=== PATIENT | male | born 1990 ===

== ENCOUNTER 2024-04-12 11:41 | Outpatient (REF) | payer OTHER, SELFPAY ==
--- OUTSIDE RECORDS SUMMARY | 2024-04-12 13:35 | XMS_ITS | Data Portability ---
Author Organization [facility] Home Service Address [address] [place] [address] Assessment No assessment recorded. Plan of Treatment Reminders Order Date Submit Date Provider Last Modified By Organization Details Last Modified Time Details Appointments NEW PATIENT 30 2024 11:00A M DR LAY Not available Not available Not available ANNUAL EXAM 2024 02:00P M DR LAY Not available Not available Not available Lab ESR (erythroc yte sedimenta tion rate), blood 2024 025 [email or web address] Not available 04/12/2024 11:51:12 C-reactiv e protein, quantitat tatianna, serum or plasma 2024 025 [email or web address] Not available 04/12/2024 11:51:26 food allergen panel, serum 2024 025 [email or web address] Not available 04/12/2024 11:51:39 ige, total, serum 2024 025 [email or web address] Not available 04/12/2024 11:51:50 CBC w/ auto diff 2024 025 [email or web address] Not available 04/12/2024 11:52:00 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 Surgeries None recorded. Imaging None recorded. Medication Orders None recorded. Patient TargetsNo targets recorded. Patient InstructionsNo instructions recorded. 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 Medical Equipment None Reported. Allergies No known drug allergies Medications Name Sig Start Date Stop Date Status Note LastModified by Organization Details LastModified Time moxifloxacin 0.5 % eye drops INSTILL 1 DROP IN the LEFT EYE 3 TIMES PER DAY 04/12 completed Not Available Not Available Not Available Vitals Date Recorded Body height Body mass index (BMI) Body weight Heart rate Oxygen saturation Oxygen saturation in Arterial blood by Pulse oximetry Systolic blood pressure Diastolic blood pressure Provider Name and Address Organization Details Last Updated DateTime 177.8 cm 30.7 kg/m2 01029.7 7 g 68 /min 98 % 98 % 114 mm[Hg] 66 mm[Hg] Chip Schaefer [facility] 11:05:52 Social History Question Answer Notes LastModified by Organizat ion Details LastModified Time Tobacco Smoking Status Former Smoker Social Past Chip chapman [facility] 04/12/2024 11:04:36 What Was The Date Of Your Most Recent Tobacco Screening? 04/12/2024 [email or web address] Information not available 04/12/2024 Sex: Unknown Functional Status None recorded. Mental Status None recorded. Family History Nothing Reported. Medical History No medical history recorded. Past Encounters Encounter ID Performer Location Encounter Start Date Encounter Closed Date Diagnosis/Indication Diagnosis SNOMED-CT Code Diagnosis ICD10 Code Diagnosis Note [id number] Williams Lay DO [facility] [address] [facility],[place] [address] 04/12/2024 10:57:07 04/12/2024 12:26:42 Depression screening 425675053 Z13.31 neg Dermatogra phic urticaria 1925032 L50.3 will start zyrtec and stop the negro Health Concerns Section Related Observation LastModified by Organization Detai ls LastModified Time None Recorded Concern Status LastModified by Organization Details LastModified Time None Recorded Advance Directives Directive None Recorded Payers Encounter Date Sequence Insurance Name Policy Number Policy Navarro Covered Member ID Navarro Member ID Guarantor Name 04/12/2024 1 [employer] - DOS ON OR AFTER 2024 - [employer] () Macario Norman [id number] Macario Norman
--- OUTSIDE RECORDS SUMMARY | 2024-04-12 13:35 | XMS_ITS | Continuity of Care Document ---
Author Organization [place] [facility], [facility] Address [address] [place] [address] [place] [address] Assessment No assessment recorded. Plan of Treatment Reminders Order Date Submit Date Provider Last Modified By Organization Details Last Modified Time Details Appointments NEW PATIENT 30 2024 11:00A M DR LAY Not available Not available Not available ANNUAL EXAM 2024 02:00P M DR LAY Not available Not available Not available Lab ESR (erythroc yte sedimenta tion rate), blood 2024 025 [email or web address] Not available 04/12/2024 11:51:12 C-reactiv e protein, quantitat tatianna, serum or plasma 2024 025 Not available 04/12/2024 11:51:26 food allergen panel, serum 2024 025 [email or web address] Not available 04/12/2024 11:51:39 ige, total, serum 2024 025 [email or web address] Not available 04/12/2024 11:51:50 CBC w/ auto diff 2024 025 [email or web address] Not available 04/12/2024 11:52:00 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 Surgeries None recorded. Imaging None recorded. Medication Orders None recorded. Patient TargetsNo targets recorded. Patient InstructionsNo instructions recorded. 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 [...] Last Updated DateTime 177.8 cm 30.7 kg/m2 82012.7 7 g 68 /min 98 % 98 % 114 mm[Hg] 66 mm[Hg] Chip Schaefer [facility] 11:05:52 Social History Question Answer Notes LastModified by Organizat ion Details LastModified Time Tobacco Smoking Status Former Smoker Social Past Chip chapman [facility] 04/12/2024 11:04:36 What Was The Date Of Your Most Recent Tobacco Screening? 04/12/2024 [email or web address] Information not available 04/12/2024 Sex: Unknown Functional Status None recorded. Mental Status None recorded. Family History Nothing Reported. Medical History No medical history recorded. Past Encounters Encounter ID Performer Location Encounter Start Date Encounter Closed Date Diagnosis/Indication Diagnosis SNOMED-CT Code Diagnosis ICD10 Code Diagnosis Note [id number] Williams Lay DO [facility] [address] [facility],[place] [address] 04/12/2024 10:57:07 04/12/2024 12:26:42 Depression screening 733033577 Z13.31 neg Dermatogra phic urticaria 9436543 L50.3 will start zyrtec and stop the negro Health Concerns Section Related Observation LastModified by Organization Detai ls LastModified Time None Recorded Concern Status LastModified by Organization Details LastModified Time None Recorded Payers Encounter Date Sequence Insurance Name Policy Number Policy Navarro Covered Member ID Navarro Member ID Guarantor Name 04/12/2024 1 [employer] - DOS ON OR AFTER 2024 - [employer] () Macario Norman [id number] Macario Norman
--- OUTSIDE RECORDS SUMMARY | 2024-04-12 13:36 | XMS_ITS | Continuity of Care Document ---
Author Name [facility] Organization [facility] Care Team Providers Care Laundry Supervisor Name Role Phone [facility] Unavailable Unavailable Problems Combined list of problems from Department of Defense and Veterans Affairs facilities. It does not include entries that were removed or entered in error. Problem Status Onset Date Problem Type Date of Resolution Comments Source Injury of conjunctiva and corneal abrasion without foreign body, right eye Inactive 09/11/19 19 Condition [facility] Family history of malignant melanoma Active Condition May 12, 2023 Entered By: Marco Antonio CEDILLO Comment: father with melanoma age 59 [facility] [place] [facility] Family history of prostate cancer Active Condition May 12, 2023 Entered By: Marco Antonio CEDILLO Comment: father dx'd with prostate cancer age 55/ Dad now 75 alive and well- 2023 [facility] [place] [facility] Irritable bowel syndrome Active Condition May 12, 2023 Entered By: Marco Antonio CEDILLO Comment: mild sx/ vet used loperamide in past and experienced constipation/ trial of avoid FODMAP foods [facility] [place] [facility] Pain of right shoulder joint Active Condition May 12, 2023 Entered By: Marco Antonio CEDILLO Comment: consider med rehab consult [facility] [place] [facility] Diagnosis: ICD-10-CM Z71.89 Other specified counseling Active Diagnosis [facility] [place] [facility] Diagnosis: ICD-10-CM M25.511 Pain in right shoulder Active Diagnosis [facility] [place] [facility] Allergies, Adverse Reactions, Alerts Combined list of allergies from Department of Defense and Veterans Affairs facilities. It does not include entries that were removed or entered in error. Substance Category Reaction Severity Reaction type Status Date Reported Comments Source No Known Allergies Drug allergy (disorder) active 03/13/2023 [facility], [place] Immunizations Combined list of available immunizations from the Department of Defense and Veterans Affairs facilities. Immunization Series Date Given Administered By Site Reaction Lot Number CVX Code Drug Senior Business Manager Status Comments Source MENINGOCOCCAL MCV4P 1 2022 114 complet ed meningoco ccal polysacch aride (groups A, C, Y and W-135) diphtheri a toxoid conjugate vaccine (MCV4P) Lot#: [id number] [facility] [employer] typhoid vaccine, parenteral 2022 ROSARIOFMARTI BRUCE Shoul kaylee, left (delt oid) [id number] sanofi pasteur complet ed typhoid vaccine, parentera l 04/02/22 Given [id number]-A [facility] anthrax vaccine 2022 ROSARIOFMARTI BRUCE Shoul kaylee, left (delt oid) [id number] [facility]. complet ed anthrax vaccine 04/02/22 Given 0110A-A [facility] ANTHRAX, PRE-EXPOSURE PROPHYLAXIS, POST-EXPOSURE PROPHYLAXIS 2022 LEFT DELTO ID 24 complet ed Lot#: [id number] [facility] TYPHOID, PARENTERAL 2022 LEFT DELTO ID 41 complet ed typhoid vaccine, parentera l Lot#: [id number] Mfr: SANOFI PASTEUR [facility] [employer] SARS-CoV-2 (COVID-19) [id number] vacc 2020 [id number] PFIZER complet ed SARS-CoV- 2 (COVID-19 ) [id number] 73 vacc 12/13/20 Given Ambulat ory Pharmac y COVID-19 (PFIZER), MRNA, LNP-S, PF, 30 MCG/0.3 ML DOSE 2020 208 complet ed SARS-CoV- 2 (COVID-19 ) NVX-CoV23 73 vacc Lot#: [id number] Mfr: PFIZER, INC [facility] [employer] COVID Vaccine Pfizer 2020 [id number] PFIZER complet ed COVID Vaccine Pfizer 11/22/20 Given Ambulat ory Pharmac y COVID-19 (PFIZER), MRNA, LNP-S, PF, 30 MCG/0.3 ML DOSE 1 2020 208 complet ed Lot#: [id number] Mfr: PFIZER, INC [facility] [place] [facility] influenza, injectable, quadrivalent 2018 [id number] 158 Seqirus complet ed influenza , injectabl e, quadrival ent 12/27/18 Given Ambulat ory Pharmac y influenza, injectable, quadrivalent, contains preservative 1 2018 [id number] 158 Se[employer] (SEQ) complet ed influenza , injectabl e, quadrival ent, contains preservat tatianna DoD typhoid Vi capsular polysaccharid e vac 2018 [id number] sanofi pasteur complet ed typhoid Vi capsular polysacch aride vac 04/01/18 Given Ambulat ory Pharmac y anthrax vaccine 2018 [id number] [employer]gent [employer] complet ed anthrax vaccine 04/01/18 Given Ambulat ory Pharmac y pneumococcal polysaccharid e, 23 valent 2018 [id number] 33 Merck & Company Inc complet ed pneumococ jese polysacch aride, 23 valent 04/01/18 Given Ambulat ory Pharmac y anthrax vaccine 1 2018 [id number] [employer] [place] ([facility]) complet ed anthrax vaccine DoD pneumococcal polysaccharid e vaccine, 23 valent 1 2018 [id number] 33 Merck (MSD) complet ed pneumococ jese polysacch aride vaccine, 23 valent DoD typhoid Vi capsular polysaccharid e vaccine 1 2018 [id number] Sanofi Pasteur (PMC) complet ed typhoid Vi capsular polysacch aride vaccine DoD ANTHRAX, PRE-EXPOSURE PROPHYLAXIS, POST-EXPOSURE PROPHYLAXIS 2018 24 complet ed Lot#: [id number] Mfr: EMERGENT BIOSOLUTI ONS [facility] PNEUMOCOCCAL POLYSACCHARID E [id number] 2018 33 complet ed pneumococ jese polysacch aride, 23 valent Lot#: [id number] [facility] TYPHOID, VICPS 1 2018 101 complet ed typhoid Vi capsular polysacch aride vaccine Lot#: [id number] Mfr: SANOFI PASTEUR [facility] influenza, seasonal, injectable-pf 2017 [id number] 140 Seqirus complet ed influenza , seasonal, injectabl e-pf 12/21/17 Given Ambulat ory Pharmac y Influenza, seasonal, injectable, preservative free 1 2017 [id number] 140 Seqirus (SEQ) comple t ed Influenza , seasonal, injectabl e, preservat tatianna free DoD hepatitis A adult vaccine 2016 [id number] 52 GlaxoSmithKli ne complet ed hepatitis A adult vaccine 12/22/16 Given Ambulat ory Pharmac y hepatitis A vaccine, adult dosage 2 2016 [id number] 52 SmithKline (SKB) complet ed hepatitis A vaccine, adult dosage DoD hepatitis A adult vaccine 2016 [id number] 52 GlaxoSmithKli ne complet ed hepatitis A adult vaccine 12/20/16 Given Ambulat ory Pharmac y hepatitis A vaccine, adult dosage 2 2016 [id number] 52 SmithKline (SKB) complet ed hepatitis A vaccine, adult dosage DoD HEP A, ADULT 2 2016 52 complet ed hepatitis A vaccine, adult dosage Lot#: [id number] [facility] influenza, seasonal, injectable-pf 2016 [id number] 140 Unknown complet ed influenza , seasonal, injectabl e-pf 11/30/16 Given Ambulat ory Pharmac y Influenza, seasonal, injectable, preservative free 1 2016 [id number] 140 Unknown (UNK) comple t ed Influenza , seasonal, injectabl e, preservat tatianna free DoD influenza, seasonal, injectable 2015 [id number] 1A 141 CSL Behring complet ed influenza , seasonal, injectabl e 10/27/15 Given Ambulat ory Pharmac y Influenza, seasonal, injectable 1 2015 [id number] 1A 141 CSL [employer] (CSL) complet ed Influenza , seasonal, injectabl e DoD measles, mumps and rubella virus vaccine 1 2015 UNK 03 Unknown (UNK) Not Given measles, mumps and rubella virus vaccine DoD varicella virus vaccine 1 2015 UNK 21 Unknown (UNK) Not Given varicella virus vaccine DoD hepatitis B vaccine, adult dosage 1 2015 UNK 43 Unknown (UNK) Not Given hepatitis B vaccine, adult dosage DoD hepatitis A adult vaccine 2015 [id number] 52 GlaxoSmithKli ne complet ed hepatitis A adult vaccine 08/14/15 Given Ambulat ory Pharmac y adenovirus vaccine, live 2015 [id number] 4 143 Teva Pharmaceutica ls complet ed adenoviru s vaccine, live 08/14/15 Given Ambulat ory Pharmac y hepatitis A vaccine, adult dosage 1 2015 [id number] 52 [place] (SKB) complet ed hepatitis A vaccine, adult dosage DoD Adenovirus, type 4 and type 7, live, oral 1 2015 [id number] 4 143 Pantoja [facility] (BRR) complet ed Adenoviru s, type 4 and type 7, live, oral DoD ADENOVIRUS TYPES 4 AND 7 1 2015 143 complet ed Adenoviru s, type 4 and type 7, live, oral Lot#: [id number] Mfr: PANTOJA LABORATOR IES [facility] HEP A, ADULT 1 2015 52 complet ed hepatitis A vaccine, adult dosage Lot#: [id number] [facility] tetanus, diphtheria, acellular pertu is 2015 [id number] 115 sanofi pasteur complet ed tetanus, diphtheri a, acellular pertussis 08/10/15 Given Ambulat ory Pharmac y poliovirus vaccine, inactivated 2015 [id number] 10 sanofi pasteur complet ed polioviru s vaccine, inactivat ed 08/10/15 Given Ambulat ory Pharmac y meningococcal A,C,Y,W-135 (MCV4P) 2015 [id number] 114 GlaxoSmithKli ne complet ed meningoco ccal A,C,Y,W-1 35 (MCV4P) 08/10/15 Given Ambulat ory Pharmac y poliovirus vaccine, inactivated 1 2015 [id number] 10 Sanofi Pasteur (PMC) complet ed polioviru s vaccine, inactivat ed DoD meningococcal polysaccharid e (groups A, C, Y and W-135) diphtheria toxoid conjugate vaccine (MCV4P) 1 2015 [id number] 114 SmithKline (SKB) complet ed meningoco ccal polysacch aride (groups A, C, Y and W-135) diphtheri a toxoid conjugate vaccine (MCV4P) DoD tetanus toxoid, reduced diphtheria toxoid, and acellular pertu is vaccine, adsorbed 1 2015 [id number] 115 Sanofi Pasteur (PMC) complet ed tetanus toxoid, reduced diphtheri a toxoid, and acellular pertussis vaccine, adsorbed DoD POLIO, UNSPECIFIED FORMULATION 2015 89 complet ed polioviru s vaccine, inactivat ed Lot#: [id number] Mfr: SANOFI PASTEUR [facility] TDAP 2015 115 complet ed tetanus, diphtheri a, acellular pertussis Lot#: [id number] Mfr: SANOFI PASTEUR [facility] influenza, seasonal, injectable-pf 2014 [id number] 140 Unknown complet ed influenza , seasonal, injectabl e-pf 01/29/15 Given Ambulat ory Pharmac y Influenza, seasonal, injectable, preservative free 1 2014 [id number] 140 Other (OTH) complet ed Influenza , seasonal, injectabl e, preservat tatianna free DoD Results Combined list of recent chemistry, hematology and other laboratory results from Department of Defense and Veterans Affairs, ranging from 15 months to all on record, depending upon the facility. Order Name Results Value Reference Range Date Interpretation Specimen Comments Source BASIC METABOLI C PANEL (non-fas ting) UREA NITROGEN [MASS/VOLU ME] IN SERUM OR PLASMA 20 mg/dL 7 - 25 05/11 Specimen Type: SERUM No comment entered. Ordering Provider: COSTA GALEANO Report Released Date/Time: May 12, 2023 09:36 AM Reporting Lab: [facility] [address] [address] Performing Lab: [facility] [address] [address] [facility] BASIC METABOLI C PANEL (non-fas ting) GLUCOSE [MASS/VOLU ME] IN SERUM OR PLASMA 98 mg/dL 65 - 100 05/11 Specimen Type: SERUM No comment entered. Ordering Provider: COSTA GALEANO Report Released Date/Time: May 12, 2023 09:36 AM Reporting Lab: [facility] [place] [facility] [address] [address] Performing Lab: [facility] [place] [facility] [address] [address] [facility] [place] [facility] BASIC METABOLI C PANEL (non-fas ting) SODIUM [MOLES/VOL UME] IN SERUM OR PLASMA 140 mmol/L 135 - 145 05/11 Specimen Type: SERUM No comment entered. Ordering Provider: COSTA GALEANO Report Released Date/Time: May 12, 2023 09:36 AM Reporting Lab: [facility] [place] [facility] [address] [address] Performing Lab: [facility] [place] [address] [address] [facility] BASIC METABOLI C PANEL (non-fas ting) POTASSIUM [MOLES/VOL UME] IN SERUM OR PLASMA 4.4 mmol/L 3.5 - 5.0 05/11 Specimen Type: SERUM No comment entered. Ordering Provider: COSTA GALEANO Report Released Date/Time: May 12, 2023 09:36 AM Reporting Lab: [facility] [place] [address] [address] Performing Lab: [facility] [place] [address] [address] [facility] [place] [facility] BASIC METABOLI C PANEL (non-fas ting) CHLORIDE [MOLES/VOL UME] IN SERUM OR PLASMA 105 mmol/L 100 - 110 05/11 Specimen Type: SERUM No comment entered. Ordering Provider: COSTA GALEANO Report Released Date/Time: May 12, 2023 09:36 AM Reporting Lab: [facility] [place] [facility] [address] [address] Performing Lab: [facility] [place] [address] [address] [facility] [place] [facility] BASIC METABOLI C PANEL (non-fas ting) CARBON DIOXIDE, TOTAL [MOLES/VOL UME] IN SERUM OR PLASMA 25 meq/L 20 - 30 05/11 Specimen Type: SERUM No comment entered. Ordering Provider: COSTA GALEANO Report Released Date/Time: May 12, 2023 09:36 AM Reporting Lab: [address] [address] Performing Lab: [facility] [address] [facility] BASIC METABOLI C PANEL (non-fas ting) CREATININE [MASS/VOLU ME] IN SERUM OR PLASMA 0.94 mg/dL 0.50 - 1.40 05/11 Specimen Type: SERUM No comment entered. Ordering Provider: COSTA GALEANO Report Released Date/Time: May 12, 2023 09:36 AM Reporting Lab: [facility] [address] Performing Lab: [facility] [address] [facility] BASIC METABOLI C PANEL (non-fas ting) GLOMERULAR FILTRATION RATE/1.73 SQ M.PREDICTE D [VOLUME RATE/AREA] IN SERUM, PLASMA OR BLOOD BY CREATININE -BASED FORMULA (CKD-EPI 2020) >90mL/mi n 60 05/11 Specimen Type: SERUM No comment entered. Ordering Provider: COSTA GALEANO Report Released Date/Time: May 12, 2023 09:36 AM Reporting Lab: [facility] [address] Performing Lab: [facility] [address] [facility] CALCIUM CALCIUM [MASS/VOLU ME] IN SERUM OR PLASMA 9.2 mg/dL 8.5 - 10.2 05/11 Specimen Type: SERUM No comment entered. Ordering Provider: COSTA GALEANO Report Released Date/Time: May 12, 2023 09:36 AM Reporting Lab: [facility] [place] [facility] [address] [address] Performing Lab: [facility] [place] [facility] [address] [address] [facility] [place] [facility] CBC AND DIFF (AUTO) LEUKOCYTES [#/VOLUME] IN BLOOD BY AUTOMATED COUNT 7.67 10*3/uL 4.50 - 11.00 05/11 Specimen Type: BLOOD No comment entered. Ordering Provider: COSTA GALEANO Report Released Date/Time: May 12, 2023 09:36 AM Reporting Lab: [facility] [place] [facility] [address] [address] Performing Lab: [facility] [place] [facility] [address] [address] [facility] [place] [facility] CBC AND DIFF (AUTO) ERYTHROCYT ES [#/VOLUME] IN BLOOD BY AUTOMATED COUNT 4.48 10*6/uL 4.23 - 5.66 05/11 Specimen Type: BLOOD No comment entered. Ordering Provider: COSTA GALEANO Report Released Date/Time: May 12, 2023 09:36 AM Reporting Lab: [facility] [place] [facility] [address] [address] Performing Lab: [facility] [place] [facility] [address] [address] [facility] [place] [facility] CBC AND DIFF (AUTO) HEMOGLOBIN [MASS/VOLU ME] IN BLOOD 14.1 g/dL 12.8 - 17 05/11 Specimen Type: BLOOD No comment entered. Ordering Provider: COSTA GALEANO Report Released Date/Time: May 12, 2023 09:36 AM Reporting Lab: [facility] [place] [facility] [address] [address] Performing Lab: [facility] [place] [facility] [address] [place] [address] [facility] [place] [facility] CBC AND DIFF (AUTO) HEMATOCRIT [VOLUME FRACTION] OF BLOOD BY AUTOMATED COUNT 38.8 39.2 - 50.4 05/11 L Specimen Type: BLOOD No comment entered. Ordering Provider: COSTA GALEANO Report Released Date/Time: May 12, 2023 09:36 AM Reporting Lab: [facility] [place] [address] [address] Performing Lab: [facility] CENTERTRN [facility]ITAL[facility]ETS [facility] [address] [address] [facility] CBC AND DIFF (AUTO) MCV [ENTITIC VOLUME] BY AUTOMATED COUNT 86.6 fL 82 - 99 05/11 Specimen Type: BLOOD No comment entered. Ordering Provider: COSTA GALEANO Report Released Date/Time: May 12, 2023 09:36 AM Reporting Lab: [facility]ITALUSETS [address] [address] Performing Lab: [facility]TRN [place] [address] [address] [facility]ITALN [facility] CBC AND DIFF (AUTO) MCHC [MASS/VOLU ME] BY AUTOMATED COUNT 36.3 g/dL 30.8 - 35.1 05/11 H Specimen Type: BLOOD No comment entered. Ordering Provider: COSTA GALEANO Report Released Date/Time: May 12, 2023 09:36 AM Reporting Lab: [facility]TRN [place] [facility] [address] [address] Performing Lab: [facility] [place] [address] [address] [facility]N [facility]ITALUSE [facility] CBC AND DIFF (AUTO) PLATELETS [#/VOLUME] IN BLOOD BY AUTOMATED COUNT 273 10*3/uL 140 - 360 05/11 Specimen Type: BLOOD No comment entered. Ordering Provider: COSTA GALEANO Report Released Date/Time: May 12, 2023 09:36 AM Reporting Lab: [facility]ENTERTRN [place] [address] [address] Performing Lab: [place] [facility] [place] [facility] [address] [address] [facility] [place] [facility] CBC AND DIFF (AUTO) ERYTHROCYT E DISTRIBUTI ON WIDTH [RATIO] BY AUTOMATED COUNT 12.2 12.0 - 16.0 05/11 Specimen Type: BLOOD No comment entered. Ordering Provider: COSTA GALEANO Report Released Date/Time: May 12, 2023 09:36 AM Reporting Lab: [facility] [place] [facility] [address] [address] Performing Lab: [place] [facility] [facility] [address] [address] [facility] [place] [facility] CBC AND DIFF (AUTO) MONOCYTES [#/VOLUME] IN BLOOD BY AUTOMATED COUNT 0.70 10*3/uL 0.30 - 1.10 05/11 Specimen Type: BLOOD No comment entered. Ordering Provider: COSTA GALEANO Report Released Date/Time: May 12, 2023 09:36 AM Reporting Lab: [facility] [place] [facility] [address] [address] Performing Lab: [place] [facility] [place] [facility] [address] [address] [facility] [place] [facility] CBC AND DIFF (AUTO) MCH [ENTITIC MASS] BY AUTOMATED COUNT 31.5 pg 26.2 - 32.6 05/11 Specimen Type: BLOOD No comment entered. Ordering Provider: COSTA GALEANO Report Released Date/Time: May 12, 2023 09:36 AM Reporting Lab: [facility] [place] [facility] [address] [address] Performing Lab: [place] [facility] [place] [facility] [address] [address] [facility] [place] [facility] CBC AND DIFF (AUTO) NEUTROPHIL S/100 LEUKOCYTES IN BLOOD BY AUTOMATED COUNT 59.5 43.7 - 75.8 05/11 Specimen Type: BLOOD No comment entered. Ordering Provider: COSTA GALEANO Report Released Date/Time: May 12, 2023 09:36 AM Reporting Lab: [facility] [place] [facility] [address] [address] Performing Lab: [facility] [place] [facility] [address] [address] [facility] [place] [facility] CBC AND DIFF (AUTO) LYMPHOCYTE S/100 LEUKOCYTES IN BLOOD BY AUTOMATED COUNT 26.9 14.0 - 42.3 05/11 Specimen Type: BLOOD No comment entered. Ordering Provider: COSTA GALEANO Report Released Date/Time: May 12, 2023 09:36 AM Reporting Lab: [facility] [place] [facility] [address] [address] Performing Lab: [facility] [place] [facility] [address] [address] [place] [facility] [place] [facility] CBC AND DIFF (AUTO) MONOCYTES/ 100 LEUKOCYTES IN BLOOD BY AUTOMATED COUNT 9.1 5.1 - 13.7 05/11 Specimen Type: BLOOD No comment entered. Ordering Provider: COSTA GALEANO Report Released Date/Time: May 12, 2023 09:36 AM Reporting Lab: [facility] [place] [facility] [address] [address] Performing Lab: [facility] [place] [facility] [address] [address] [facility] [place] [facility] CBC AND DIFF (AUTO) EOSINOPHIL S/100 LEUKOCYTES IN BLOOD BY AUTOMATED COUNT 3.7 0.4 - 6.8 05/11 Specimen Type: BLOOD No comment entered. Ordering Provider: COSTA GALEANO Report Released Date/Time: May 12, 2023 09:36 AM Reporting Lab: [facility] [place] [facility] [address] [address] Performing Lab: [facility] [place] [facility] [address] [address] [facility] [place] [facility] CBC AND DIFF (AUTO) BASOPHILS/ 100 LEUKOCYTES IN BLOOD BY AUTOMATED COUNT 0.4 0.1 - 2.0 05/11 Specimen Type: BLOOD No comment entered. Ordering Provider: COSTA GALEANO Report Released Date/Time: May 12, 2023 09:36 AM Reporting Lab: [place] [facility] [place] [facility] [address] [address] Performing Lab: [facility] [address] [address] [place] [facility] [place] [facility] CBC AND DIFF (AUTO) NEUTROPHIL S [#/VOLUME] IN BLOOD BY AUTOMATED COUNT 4.57 10*3/uL 2.20 - 7.60 05/11 Specimen Type: BLOOD No comment entered. Ordering Provider: COSTA GALEANO Report Released Date/Time: May 12, 2023 09:36 AM Reporting Lab: [facility] [address] [id number] Performing Lab: [facility] [place] [address] [id number] [facility] [place] [facility] CBC AND DIFF (AUTO) LYMPHOCYTE S [#/VOLUME] IN BLOOD BY AUTOMATED COUNT 2.06 10*3/uL 1.00 - 3.20 05/11 Specimen Type: BLOOD No comment entered. Ordering Provider: COSTA GALEANO Report Released Date/Time: May 12, 2023 09:36 AM Reporting Lab: [facility] [place] [address] [id number] Performing Lab: [facility] [place] [address] [address] [facility] [place] [facility] CBC AND DIFF (AUTO) EOSINOPHIL S [#/VOLUME] IN BLOOD BY AUTOMATED COUNT 0.28 10*3/uL 0.03 - 0.44 05/11 Specimen Type: BLOOD No comment entered. Ordering Provider: COSTA GALEANO Report Released Date/Time: May 12, 2023 09:36 AM Reporting Lab: [facility] [place] [address] [address] Performing Lab: [facility] [place] [address] [address] [facility] [facility] CBC AND DIFF (AUTO) BASOPHILS [#/VOLUME] IN BLOOD BY AUTOMATED COUNT 0.03 10*3/uL 0.01 - 0.13 05/11 Specimen Type: BLOOD No comment entered. Ordering Provider: COSTA GALEANO Report Released Date/Time: May 12, 2023 09:36 AM Reporting Lab: [facility] [place] [facility] [address] [address] Performing Lab: [facility] [address] [address] [facility]ITAL[facility] CBC AND DIFF (AUTO) IMMATURE GRANULOCYT ES/100 LEUKOCYTES IN BLOOD BY AUTOMATED COUNT 0.4 0.0 - 0.7 05/11 Specimen Type: BLOOD No comment entered. Ordering Provider: COSTA GALEANO Report Released Date/Time: May 12, 2023 09:36 AM Reporting Lab: [facility]ENTERTRN [facility]ITAL[facility] [address] [address] Performing Lab: [facility]ENTERTRN [facility]ITAL[facility] [address] [address] [facility]ITALN [facility]ITALUSE [facility] CBC AND DIFF (AUTO) IMMATURE GRANULOCYT ES [#/VOLUME] IN BLOOD 0.03 10*3/uL 0.00 - 0.06 05/11 Specimen Type: BLOOD No comment entered. Ordering Provider: COSTA GALEANO Report Released Date/Time: May 12, 2023 09:36 AM Reporting Lab: [facility]ENTERTRN [facility]ITAL[facility] [address] [address] Performing Lab: [facility]REVER[facility]ENTERTRN [facility]ITALUSE[address] [address] [facility]ITALN [facility]ITALUSE [facility] HEMOGLOB IN A1C PANEL HEMOGLOBIN A1C/HEMOGL OBIN.TOTAL IN BLOOD BY HPLC 4.8 4.0 - 5.6 05/11 Specimen Type: BLOOD Comment: Values obtained from A1C measurement s can vary. For atypical A1C assays, a reported value of 7.0 could actually be between 6.72 and 7.28 if measured by a reference method. A reported value of 9.0 could actually be between 8.73 and 9.27. Ref: http://www. ngsp.org/[place] Pdata.asp Ordering Provider: COSTA GALEANO Report Released Date/Time: May 12, 2023 09:36 AM Reporting Lab: [facility] [place] [address] [address] Performing Lab: [facility]IONREVERGRE[facility] CENTERTRN [facility]ITALUSE[address] [address] [facility]ITALN [facility]PITALUSE [facility] LIPID PANEL, NON FASTING CHOLESTERO L [MASS/VOLU ME] IN SERUM OR PLASMA 197 mg/dL 05/11 Specimen Type: SERUM No comment entered. Ordering Provider: COSTA GALEANO Report Released Date/Time: May 12, 2023 09:36 AM Reporting Lab: [facility] [place] [facility] [address] [address] Performing Lab: [facility] W[facility]N [facility]ITALUSETS [address] [address] [facility]ITALN [facility]ITALUSE [facility] LIPID PANEL, NON FASTING TRIGLYCERI DE [MASS/VOLU ME] IN SERUM OR PLASMA 132 mg/dL 0 - 150 05/11 Specimen Type: SERUM No comment entered. Ordering Provider: COSTA GALEANO Report Released Date/Time: May 12, 2023 09:36 AM Reporting Lab: [facility] [place] [facility] [address] [address] Performing Lab: [facility]N [facility]ITAL[facility]ETS [address] [address] [facility]ITALN [facility]ITAL[facility] LIPID PANEL, NON FASTING CHOLESTERO L IN LDL [MASS/VOLU ME] IN SERUM OR PLASMA BY CALCULATIO N 113 mg/dL 0 - 129 05/11 Specimen Type: SERUM No comment entered. Ordering Provider: COSTA GALEANO Report Released Date/Time: May 12, 2023 09:36 AM Reporting Lab: [facility] [place] [facility] [address] [address] Performing Lab: [facility] [place] [facility] [address] [address] [facility] [place] [facility] LIPID PANEL, NON FASTING CHOLESTERO L.TOTAL/CH OLESTEROL IN HDL [MASS RATIO] IN SERUM OR PLASMA 3.4 05/11 Specimen Type: SERUM No comment entered. Ordering Provider: COSTA GALEANO Report Released Date/Time: May 12, 2023 09:36 AM Reporting Lab: [facility] [place] [facility] [address] [address] Performing Lab: [facility] [place] [facility] [address] [address] [facility] [place] [facility] LIPID PANEL, NON FASTING CHOLESTERO L IN HDL [MASS/VOLU ME] IN SERUM OR PLASMA 58 mg/dL 40 - 60 05/11 Specimen Type: SERUM No comment entered. Ordering Provider: COSTA GALEANO Report Released Date/Time: May 12, 2023 09:36 AM Reporting Lab: [facility] [place] [facility] [address] [address] Performing Lab: [facility] [place] [facility] [address] [address] [facility] [place] [facility] LIVER FUNCTION PROTEIN [MASS/VOLU ME] IN SERUM OR PLASMA 7.0 g/dL 6.0 - 8.3 05/11 Specimen Type: SERUM No comment entered. Ordering Provider: COSTA GALEANO Report Released Date/Time: May 12, 2023 09:36 AM Reporting Lab: [facility] [place] [facility] [address] [address] Performing Lab: [facility] [place] [address] [address] [facility] [place] [facility] LIVER FUNCTION ALBUMIN [MASS/VOLU ME] IN SERUM OR PLASMA 4.4 g/dL 3.5 - 5.0 05/11 Specimen Type: SERUM No comment entered. Ordering Provider: COSTA GALEANO Report Released Date/Time: May 12, 2023 09:36 AM Reporting Lab: [facility] [place] [facility] [address] [address] Performing Lab: [facility] [place] [facility] [address] [address] [facility] [place] [facility] LIVER FUNCTION ALKALINE PHOSPHATAS E [ENZYMATIC ACTIVITY/V OLUME] IN SERUM OR PLASMA 52 U/L 40 - 150 05/11 Specimen Type: SERUM No comment entered. Ordering Provider: COSTA GALEANO Report Released Date/Time: May 12, 2023 09:36 AM Reporting Lab: [facility] [place] [address] [address] Performing Lab: [facility] [address] [address] [facility] LIVER FUNCTION ASPARTATE AMINOTRANS FERASE [ENZYMATIC ACTIVITY/V OLUME] IN SERUM OR PLASMA 22 U/L 5 - 34 05/11 Specimen Type: SERUM No comment entered. Ordering Provider: COSTA GALEANO Report Released Date/Time: May 12, 2023 09:36 AM Reporting Lab: [facility] [place] [address] [address] Performing Lab: [facility] [place] [address] [address] [facility] LIVER FUNCTION ALANINE AMINOTRANS FERASE [ENZYMATIC ACTIVITY/V OLUME] IN SERUM OR PLASMA 25 U/L 05/11 Specimen Type: SERUM No comment entered. Ordering Provider: COSTA GALEANO Report Released Date/Time: May 12, 2023 09:36 AM Reporting Lab: [facility] [place] [address] [address] Performing Lab: [facility] [place] [address] [address] [facility] LIVER FUNCTION BILIRUBIN. TOTAL [MASS/VOLU ME] IN SERUM OR PLASMA 0.6 mg/dL 0.2 - 1.2 05/11 Specimen Type: SERUM No comment entered. Ordering Provider: COSTA GALEANO Report Released Date/Time: May 12, 2023 09:36 AM Reporting Lab: [facility] [place] [facility] [address] [address] Performing Lab: [facility] [place] [facility] [address] [address] [facility] [place] [facility] TSH THYROTROPI N [UNITS/VOL UME] IN SERUM OR PLASMA 0.84 u[IU]/mL 0.35 - 5.00 05/11 Specimen Type: SERUM No comment entered. Ordering Provider: COSTA GALEANO Report Released Date/Time: May 12, 2023 09:36 AM Reporting Lab: [facility] [place] [facility] [address] [address] Performing Lab: [facility] [address] [address] [facility] [place] [facility] Infectio us Disease HIV-1/2 AG/AB 4G CDD LC NEGATIVE 03/11 Result Comment: Performed At: 1 [facility] [address] [place] [address] SERGIO ZACHARY PHD Ph:[phone] [address] [place] [address] [facility] Infectio us Disease Source of Test.LC PostDepS torage (03/11/23 10:37 AM) 03/11 N [facility] Infectio us Disease Source of Test.LC Pre Deploy (04/02/22 9:28 AM) 04/02 N [facility] Infectio us Disease HIV-1/2 AG/AB 4G CDD LC NEGATIVE 04/02 Result Comment: Performed At: 1 [facility] [address] [place], [place] [id number] SERGIO ZACHARY PHD Ph:[phone] [address] [place] [address] [facility] Hematolo gy Sickle Cell Screen Negative 1 (04/02/22 9:28 AM) 04/02 N Interpretiv e Data: Expected Normal Range is Negative. This test was developed and its performance characteris tics evaluated by [facility] Reference Chemistry Laboratory. ? It has not been cleared or approved by the U.S. Food Drug Administrat ion (FDA).&#160 ; FDA does not require this test to go through premarket FDA review.? The test is used for clinical purposes and should not be regarded as investigati onal or for research. This laboratory is certified under the Clinical Laboratory Improvement Amendments of 1988 ( CLIA ) as qualified to perform high complexity clinical laboratory testing. [address] [place] [address] Vital Signs Combined list of inpatient and outpatient Vital Signs from Department of Defense and Veterans Affairs, ranging from 12 months to all on record, depending upon the facility. Vital Sign Value Date Comments Source SYSTOLIC BLOOD PRESSURE 117 05/12/19 24 09:08:53 [facility] [place] [facility] DIASTOLIC BLOOD PRESSURE 70 024 09:08:53 [facility] [place] [facility] PULSE OXIMETRY 100 05/12/2023 09:08:53 [facility] [place] [facility] WEIGHT 212 05/12/2023 09:08:53 [facility] [place] [facility] BMI 30 kg/m2 05/12/2023 09:08:53 [facility] [place] [facility] HEIGHT 70 05/12/2023 09:08:53 [facility] [place] [facility] PULSE 71 05/12/2023 09:08:53 [facility] [place] [facility] RESPIRATION 18 05/12/2023 09:08:53 [facility] [place] [facility] Peripheral Pulse Rate 54 bpm 03/11/2023 16:31:[address] [place] [address] [facility] Systolic Blood Pressure 114 mm[Hg] 03/11/19 24 16:31:[address] [place] [address] [facility] Diastolic Blood Pressure 83 mm[Hg] 024 16:31:00 [address] Peripheral Pulse Rate 66 bpm 04/02/2022 15:20:00 [facility] Systolic Blood Pressure 124 mm[Hg] 04/02/19 23 15:20:00 [facility] Diastolic Blood Pressure 89 mm[Hg] 023 15:20:00 [facility] Encounters Combined list of: 1) Encounters from Department of Veterans Affairs facilities going backup to the last 18 months, not all VA inpatient encounters are included; 2) Encounters from the Department of Defense facilities going backup to 280 months. Location Location Details Encounter Type Encounter Number Reason For Visit Attending Provider ADM Date DC Date Status Disposition Source [facility] [place] OUTPATIENT [id number] Notes Entered by: EMIL CADE 14 Aug 2015 0817 ------- ------- ------- ------- -- IMM TABATHA CARRASCO 08/13 Released w/o Limitations [facility] ) [facility] Optometry ) OUTPATIENT [id number] ASHUTOSH FERRO 08/13 Released w/o Limitations [facility] Optomet ry) [facility] [place] OUTPATIENT [id number] Notes Entered by: Magdalena TATE 14 Aug 2015 1413 ------- ------- ------- ------- -- Hearing Test ISHAAN TATE 08/13 Released w/o Limitations [facility] [place] [place]) OUTPATIENT [id number] Notes Entered by: MELI RUIZ 04 Sep 2015 0930 ------- ------- ------- ------- -- MELI Perea 09/03 Released with Work/Duty Limitations [facility] [place] ) [facility] [place]) OUTPATIENT [id number] Notes Entered by: MELI RUIZ 05 Sep 2015 0941 ------- ------- ------- ------- -- MELI Perea 09/04 Released w/o Limitations [facility] [place] ) [facility] Nursing FE) OUTPATIENT [id number] Notes Entered by: MANPREET AVENDANO 17 Nov 2015 0812 ------- ------- ------- ------- -- FLU VACCINE KIKE GOOD 11/16 Released w/o Limitations [facility] FE) [facility] 1 FE) OUTPATIENT [id number] (C)Edre benavides/u-[facility] GERALD Swenson 11/19 Released with Work/Duty Limitations [facility] 1 FE) [place] [address]) OUTPATIENT [id number] Notes Entered by: MARIANO LOCKE 01 Apr 2018 0844 ------- ------- ------- ------- -- ROOSEVELT Knowles 04/01 Released w/o Limitations [place]([facility] [address]) Theater Facility OUTPATIENT [id number] Theater Provider 09/10 Released w/o Limitations Theater Facilit y [place] [address]) OUTPATIENT [id number] Notes Entered by: LENCHO BARKER 25 Feb 2019 1122 ------- ------- ------- ------- -- MANSI MACKAY 02/25 Released w/o Limitations [place] Bldg [address]) [place] Hearing Conservat ion) OUTPATIENT [id number] Notes Entered by: CAREN BRIAN I 25 Feb 2019 1231 ------- ------- ------- ------- -- POST RIKY BRIZUELA I 02/25 Released w/o Limitations [place] Hearing Conserv ation) [place] Physical Exam Clinic) OUTPATIENT [id number] Notes Entered by: TASHI HAWK 25 Feb 2019 1239 ------- ------- ------- ------- -- RONAK 63VAN FRANK 02/25 Released w/o Limitations [place] Physica l Exam Clinic) [facility] [place] En[facility] [id number] 05/07 [facility] [place] [facility] [place] Out[facility] Encounter [id number] 05/08 [facility] [place] [place] OFFICE O/P NEW MOD 45 MIN [id number] Diagnos is: ICD-10- CM M25.511 Pain in right shoulde r COSTA LEVY 05/11 [facility] [place] [place] Encounter [id number] 05/14 [facility] [place] [place] Encounter [id number] 05/18 [facility] [place] CASE MANAGEMENT [id number] Diagnos is: ICD-10- CM Z71.89 Other specifi ed counselor nurses' association SILVIANO Encarnacion 05/19 [facility] [place] [facility] Outpatient Encounter [id number] 11/10 [facility] Procedures Combined list of: 1) Procedures from Department of Veterans Affairs facilities going [facility], not all [place] non-surgical procedures are included; 2) All procedures from the Department of Defense facilities. Procedure Procedure Type Code Date Perfomer Comments [facility] e ATHLETIC TRAINING RE-EVALUATION 2015 [facility] ATHLETIC TRAINING EVALUATION 2015 [facility] PURE TONE AUDIOMETRY (THRESHOLD), AUTOMATED; AIR ONLY 2015 [facility] FITTING OF SPECTACLES, EXCEPT FOR APHAKIA; MONOFOCAL 2015 [facility] ADENOVIRUS VACCINE, TYPE 7, LIVE, FOR ORAL USE 2015 [facility] ADMINISTRATION OF PATIENT-FOCUSED HEALTH RISK ASSESSMENT INSTRUMENT (EG, HEALTH HAZARD APPRAISAL) WITH SCORING AND DOCUMENTATION, PER STANDARDIZED INSTRUMENT 2019 [facility] PATIENT EDUCATION, NOT OTHERWISE CLASSIFIED, NON-PHYSICIAN PROVIDER, GROUP, PER SESSION 2019 [facility] SCREENING TEST OF VISUAL ACUITY, QUANTITATIVE, BILATERAL 2019 [facility] PNEUMOCOCCAL POLYSACCHARIDE VACCINE, 23-VALENT (PPSV23), ADULT OR IMMUNOSUPPRESSED PATIENT DOSAGE, WHEN ADMINISTERED TO INDIVIDUALS 2 YEARS OR OLDER, FOR SUBCUTANEOUS OR INTRAMUSCULAR USE 2018 [facility] SCREENING TEST OF VISUAL ACUITY, QUANTITATIVE, BILATERAL 2018 [facility] INFLUENZA VIRUS VACCINE, TRIVALENT (IIV3), SPLIT VIRUS, 0.5 ML DOSAGE, FOR INTRAMUSCULAR USE 2015 [facility] Preventive Medicine Administration Of Health Risk Questionnaire Patient-Focused Preventive Medicine Administration Of Health Risk Questionnaire Patient-Focused 36496 2019 VAN PURCELL [facility] Screening Test Of Visual Acuity, Quantitative, Bilateral Screening Test Of Visual Acuity, Quantitative, Bilateral 93285 2018 ROOSEVELT ALBERT [facility] Influenza Split Virus Vaccine 0.5mL Dosage Intramuscular 2015 MANPREET AVENDANO DoD Immunization Administration By Injection, One Vaccine Immunization Administration By Injection, One Vaccine 02013 2015 MANPREET AVENDANO [facility] Athletic Training Re-evaluation Athletic Training Re-evaluation 08271 2015 MELI RYAN [facility] Athletic Training Evaluation Athletic Training Evaluation 49483 2015 MELI RYAN [facility] Threshold Audiogram (Pure Tone) Automated Threshold Audiogram (Pure Tone) Automated 0208T 2015 ISHAAN TATE [facility] Spectacles Services Fitting Monofocal Except For Aphakia Spectacles Services Fitting Monofocal Except For Aphakia 87936 2015 ASHUTOSH FERRO Determination Of Refractive State Determination Of Refractive State 11872 2015 ASHUTOSH FERRO Ophthalmological New Patient Start Intermediate Level Care Ophthalmological New Patient Start Intermediate Level Care 36866 2015 ASHUTOSH FERRO Tdap Vaccine Tdap Vaccine 73945 2015 TABATHA CARRASCO Visit for an IM injection of 0.5mL of Boostrix (Tetanus and Diphtheria Toxoids and Acellular Pertussis). Was given in the Right Deltoid. Patient was observed for 15 min with no adverse reactions. [facility] Meningococcal Polysaccharide Diphtheria Toxoid Conjugate Vaccine 2015 TABATHA CARRASCO Visit for an IM injection of 0.5mL of Meningococcal Vaccine (Menactra). Was given in the Left Deltoid. Patient was observed for 15 min with no adverse reactions. [facility] Vaccines Viral Polio, Inactivated Vaccines Viral Polio, Inactivated 63136 2015 TABATHA CARRASCO Visit for an IM injection of 0.5mL of IPOL (Poliovirus Vaccine Inactivated). Was given in the Right Deltoid. Patient was observed for 15 min with no adverse reactions. [facility] Hepatitis A Vaccine Adult Dosage (Intramuscular Use) Hepatitis A Vaccine Adult Dosage (Intramuscular Use) 31985 2015 TABATHA CARRASCO Visit for an IM injection of 1mL of Hepatitis A (Havrix). Was given in the Right Deltoid. Patient was observed for 15 min with no adverse reactions. [facility] Immunization Admin Intranasal / Oral Each Additional Vaccine Immunization Admin Intranasal / Oral Each Additional Vaccine 44582 2015 TABATHA CARRASCO [facility] Vaccines Adenovirus Type 4 Live, For Oral Use Vaccines Adenovirus Type 4 Live, For Oral Use 08832 2015 TABATHA CARRASCO A single vaccine dose adminstered orally. [facility] Vaccines Adenovirus Type 7 Live, For Oral Use Vaccines Adenovirus Type 7 Live, For Oral Use 22949 2015 TABATHA CARRASCO A single vaccine dose adminstered orally. [facility] Immunization Administration By Injection, One Vaccine Immunization Administration By Injection, One Vaccine 41831 2015 TABATHA CARRASCO [facility] Immunization Administration By Injection, Each Additional Vaccine Immunization Administration By Injection, Each Additional Vaccine 17768 2015 TABATHA CARRASCO [facility] Screening Test Of Visual Acuity, Quantitative, Bilateral Screening Test Of Visual Acuity, Quantitative, Bilateral 11639 VIKI, MANSI GALLEGOS [facility] Threshold Audiogram (Pure Tone) Automated Threshold Audiogram (Pure Tone) Automated 0208T YOBANY GOMES [facility] Patient education, not otherwise cla ified, non-physician provider, group, per se ion YOBANY GOMES [facility] No data available for this section Ambulato ry Pharmacy Social History Combined list of available smoking, tobacco, and other social history from Department of Defense and Veterans Affairs facilities. Social History Type Response Date Comment Sour e Tobacco smoking status NHIS CT-TOBACCO FORMER USER 05/09/2023 [facility] [place] [facility] History of tobacco use CT-TOBACCO QUIT 1 TO < 5 YRS 05/09/2023 [facility] [place] [facility] This section is an empty social history section. DoD Sexual Orientation Ambula tory Pharmacy Gender identity Ambulator y Pharmacy Sex Representation Male Unknow n Organization Assessment and Plan Combined list of future care activities from Department of Defense and Veterans Affairs facilities (e.g., assessment and plan notes, appointments, orders, and referrals). Additional future care activities may be listed in the Plan of Care section. Result Assessment and Plan Date Source Assessment and Plan No data available for this section 04/12/2024 Ambulatory Pharmacy Plan of Care List of future care activities from Department of Veterans Affairs facilities. Additional future care activities may be listed in the Assessment and Plan section. Date/Time Care Activity Care Activity Detail Facili ty 05/03/2024 AMBULATORY - MEDICINE AMBULATORY - MEDICI [facility] [place] [facility] [facility] Functional Status Combined list of recent functional and cognitive assessments recorded at [facility] [employer] [facility] [place] Functional [place] Measurement (FIM) Scale: 1 = Total Assistance (Subject = 0% +), 2 = Maximal Assistance (Subject = 25% +), 3 = Moderate Assistance (Subject = 50% +), 4 = Minimal Assistance (Subject = 75% +), 5 = Supervision, 6 = Modified [place] (Device), 7 = Complete [place] (Timely, Safely). Assessment Date/Time Source Assessment Type Assessment Skill Assessment Score Assessment Details No data available for this section
[2024-04-12 13:48] LABS: MANUAL DIFF FLAG NO
[2024-04-12 13:59] LABS: Basophils Percent Auto 0.3 % (0-2); Eosinophils Absolute Auto 0.2 X10*3/uL (0.0-0.4); Eosinophils Percent Auto 2.6 % (0-4); Hematocrit 38.6 % (42.0-52.0); Hemoglobin 13.9 g/dl (14.0-18.0); Imm Gran Abs Auto 0.03 X10*3/uL (0.00-0.03); Imm Gran Pct Auto 0.3 % (0.0-0.4); Lymphocytes Percent Auto 22.5 % (20-40); Mean Corpuscular Hemoglobin 31.4 pg (27.0-33.0); Mean Corpuscular Volume 87.3 fL (80.0-98.0); Mean Platelet Volume 10.6 fL (9.4-12.4); Monocytes Absolute Auto 0.6 X10*3/uL (0.1-1.2); Monocytes Percent Auto 6.9 % (2-11); Neutrophils Percent Auto 67.4 % (45-73); Platelet Count 276 X10*3/uL (160-400); Red Blood Count 4.42 X10*6/uL (4.60-5.80); Red Cell Distribution Width 12.2 % (11.0-16.0)
[2024-04-12 14:04] LABS: C Reactive Protein < 0.10 mg/dL (< or = 0.50)
[2024-04-12 14:39] LABS: Erythrocyte Sedimentation Rate 2 MM/HR (0-15)
== END 2024-04-12 11:42 | disposition home or self-care (01) ==
LOC: HO.MANLDS 11:41
PROVIDERS: Visit Provider Internal Medicine
DX: L50.3 Dermatographic urticaria (principal)
CPT/HCPCS: 36415; 82785; 85025; 85652; 86140

== ENCOUNTER 2024-06-15 14:32 | Outpatient (REF) | payer OTHER, SELFPAY ==
--- OUTSIDE RECORDS SUMMARY | 2024-06-15 16:52 | XMS_ITS | Encounter Summary ---
Author Name [facility] [place] Organization [facility] [place] Address [address] [place] [id number] Care Team Providers Care Sports Marketing Specialist Name Role Phone COSTA CEDILLO Primary Care Provider Unav ailable Selected Encounter This section includes the information on record at [place] for the Encounter. Date/Time Encounter Type Encounter Description Reason Pro vider Source May 03, 2024 08:30 AM Outpatient Encounter PRIMARY CARE/MEDICINE IHE Encounter Template Text not used by [place] Social History: Smoking Status (Most current) and Tobacco Use (All prior to encounter date) This section includes the most current, and the historical, smoking and tobacco- related health factors from the [place] facility where the Encounter took place. Current Smoking Status This section includes the most current smoking, or tobacco-related health factor, from the [place] facility where the Encounter took place. Date/Time Current Smoking Status Comment Carroll thibodeaux May 09, 2023 05:14 PM VA-TOBACCO FORMER USER [facility] Tobacco Use History This section includes a history of the smoking, or tobacco-related health factors, that were collected on or before the date of the Encounter. The data comes from the [place] facility where the Encounter took place. Date/Time Smoking Status/Tobacco Use Comment F acility May 09, 2023 05:14 PM VA-TOBACCO QUIT 1 TO < 5 YRS [facility] Encounter Notes: All associated encounter notes This section contains the clinical notes associated to the Encounter. Date/Time Encounter Note(s) Provider Source May 03, 2024 09:09 AM CLERICAL NOTE: LOCAL TITLE: APPOINTMENT NO SHOW STANDARD TITLE: CLERICAL NOTE DATE OF NOTE: MAY 03, 2024@09:09 ENTRY DATE: MAY 03, 2024@09:09:21 AUTHOR: [place] [place] [employer] [place],SAIRA M EXP COSIGNER: URGENCY: STATUS: COMPLETED Patient Name: JORDON EDWARDS JR Patient SSN: [id number] Date and time of Appointment No show : 05/03/24 08:30 PATIENT PHONE - PHONE NUMBER [[email or web address]] - NONE FOUND Patient's medical record was reviewed. Follow-up actions were determined and initiated: Please check/complete as applies: [X]Telephoned Directly [ ]Re-scheduled for next available appt [X]Sent a N0-show letter ( must call for appointment) [ ]Other (Emergent/Overbook, etc.): Additional Comments: Future Clinic Visits No data available /gabby/ SAIRA RODRIGUEZ Advanced Trust Evaluation Supervisor Signed: 05/03/2024 09:09 SAIRA RODRIGUEZ [place] [facility]
--- OUTSIDE RECORDS SUMMARY | 2024-06-15 16:52 | XMS_ITS | Data Portability ---
Author Organization [facility] Address [address] [place] [address] Assessment No assessment recorded. Plan of Treatment Reminders Order Date Submit Date Provider Last Modified By Organization Details Last Modified Time Details Appointments ANNUAL EXAM 2024 02:00P M DR LAY Not available Not available Not available ANNUAL EXAM 2025 11:30A M DR LAY Not available Not available Not available Lab testoster one, free + total, serum 2024 025 [facility], [address] [place] [address], [id number], 06/15/2024 14:34:47 CMP, serum or plasma 2024 025 [facility], [address] [place] [address], [id number], 06/15/2024 14:34:47 CBC 2024 025 [facility], [address] [place] [address], [id number], 06/15/2024 14:34:47 ESR (erythroc yte sedimenta tion rate), blood 2024 025 [facility] Not available 04/13/2024 13:06:12 C-reactiv e protein, quantitat tatianna, serum or plasma 2024 025 Not available 04/12/2024 11:51:26 food allergen panel, serum 2024 025 Not available 04/12/2024 11:51:39 ige, total, serum 2024 025 [facility] Not available 04/15/2024 12:28:06 CBC w/ auto diff 2024 025 [facility] Not available 04/13/2024 13:06:12 Referral manager community & immunolog ist referral 2024 025 rachel Deepak Pritchard, [address] [place] [address], [id number], 05/10/2024 09:09:55 Procedures None recorded. Surgeries None recorded. Imaging None recorded. Medication Orders None recorded. Patient TargetsNo targets recorded. Patient InstructionsNo instructions recorded. 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 Problems Name Problem SNOMED Code Status Onset Date Resolution Date Notes Provider Name and Address Organization Details Recorded Time Dermatograp hic urticaria 1422591 Active 2024 Williams Lay DO [address] [place] [address], [phone], [facility] 5 11:27:50 Fatigue 59320764 Active 2024 Williams Lay DO [address] [place] [address], [phone], [facility] 14:27:33 Problem Notes None recorded. Medical Equipment None [...] Last Updated DateTime 177.8 cm 30.7 kg/m2 55231.7 7 g 68 /min 98 % 98 % 114 mm[Hg] 66 mm[Hg] Chip Schaefer [facility] 11:05:52 Date Recorded Body height Body mass index (BMI) Body weight Heart rate Oxygen saturation Oxygen saturation in Arterial blood by Pulse oximetry Systolic blood pressure Diastolic blood pressure Provider Name and Address Organization Details Last Updated DateTime 177.8 cm 30.7 kg/m2 24542.7 7 g 68 /min 97 % 97 % 110 mm[Hg] 64 mm[Hg] More Soloriomond [facility] 13:59:38 Social History Question Answer Notes LastModified by Organizat ion Details LastModified Time Tobacco Smoking Status Former Smoker Social Past Chip chapman [facility] Internal [facility] 04/12/2024 11:04:36 What Was The Date Of Your Most Recent Tobacco Screening? 04/12/2024 [email or web address] Information not available 04/12/2024 Sex: Unknown Functional Status None recorded. Mental Status None recorded. Family History Nothing Reported. Medical History No medical history recorded. Past Encounters Encounter ID Performer Location Encounter Start Date Encounter Closed Date Diagnosis/Indication Diagnosis SNOMED-CT Code Diagnosis ICD10 Code Diagnosis Note [id number] Williams Lay [facility] [address] [facility],[place] [address] 04/12/2024 10:57:07 04/12/2024 13:39:14 Depression screening 101515776 Z13.31 neg Dermatogra phic urticaria 6814760 L50.3 will start zyrtec and stop the negro [id number] Williams Lay [facility] [address] [facility],[place] [address] 06/15/2024 13:47:34 06/15/2024 16:38:31 Active or passive immunization 132696976 Z23 Dermatogra phic urticaria 0750684 L50.3 seeing manager community Well adult 658474655 Z00 .00 stable and doing well needs lab Fatigue 52531658 R53.83 Health Concerns Section Related Observation LastModified by Organization Detai ls LastModified Time None Recorded Concern Status LastModified by Organization Details LastModified Time None Recorded Advance Directives Directive None Recorded Payers Encounter Date Sequence Insurance Name Policy Number Policy Navarro Covered Member ID Navarro Member ID Guarantor Name 04/12/2024 1 [employer] - DOS ON OR AFTER 24 - [employer] () Macario Johns Emerson [id number] Macario Norman 06/15/2024 1 [employer] - DOS ON OR AFTER 24 - [employer] () Macario Johns Emerson [id number] Macario Norman Notes Date Note Type Note Provider Name a nd Address Organization Details Recorded Time text/html Annual WellnessReported bypatient.Diet and Nutrition:healthy diet Fracture Risk:no history of fractures; no recent explained fracture; no sudden unexplained fractures; no previous musculoskeletal injuries Physical Activity:exercises on a regular basis; recent increase in physical activity; good physical condition Additional Lifestyle Factors:no tobacco use; no alcohol intake; stopped drinking alcohol Depression Risk:never feels sad, empty, or tearful; no loss of interest in activities; no significant changes in weight; no sleep disturbances or insomnia; no agitation; no loss of energy; no feelings of worthlessness or guilt; no thoughts of suicide; no history of depression; no history of mood disorders Hearing:no loss of hearing Vision:no vision problemsGeneral Rash/Skin LesionReported bypatient.Quality:no itchy; not painful Context:no new detergents or skin products; no one else with similar rash Aggravating factors:nothing makes it worse Associated Symptoms:no fever; no cold symptoms; no nausea; no vomiting; no diarrhea; no urinary symptoms Williams Lay, [address] [place], [address], [facility] 06/15/2024 14:31:03
--- OUTSIDE RECORDS SUMMARY | 2024-06-15 16:52 | XMS_ITS | Continuity of Care Document ---
Author Name [facility] Organization [facility] Care Team Providers Care Pourer Off Name Role Phone [facility] Unavailable Unavailable Problems Combined list of problems from Department of Defense and Veterans Affairs facilities. It does not include entries that were removed or entered in error. Problem Status Onset Date Problem Type Date of Resolution Comments Source Injury of conjunctiva and corneal abrasion without foreign body, right eye Inactive 09/11/19 19 Condition [facility] Family history of malignant melanoma Active Condition May 12, 2023 Entered By: Marco Antonio CEDILLO Comment: father with melanoma age 60 [facility] [place] [facility] Family history of prostate cancer Active Condition May 12, 2023 Entered By: Marco Antonio CEDILLO Comment: father dx'd with prostate cancer age 55/ Dad now 75 alive and well- [facility] [place] [facility] Irritable bowel syndrome Active Condition May 12, 2023 Entered By: Marco Antonio CEDILLO Comment: mild sx/ vet used loperamide in past and experienced constipation/ trial of avoid FODMAP foods [facility] [place] [facility] Pain of right shoulder joint Active Condition May 12, 2023 Entered By: Marco Antonio CEDILLO Comment: consider med rehab consult [facility] [place] [facility] Diagnosis: ICD-10-CM Z71.89 Other specified counseling Active Diagnosis [facility] [place] [facility] Diagnosis: ICD-10-CM M25.511 Pain in right shoulder Active Diagnosis [facility] [place] [facility] Allergies, Adverse Reactions, Alerts Combined list of allergies from Department of Defense and Veterans Affairs facilities. It does not include entries that were removed or entered in error. Substance Category Reaction Severity Reaction type Status Date Reported Comments Source No Known Allergies Drug allergy (disorder) active 03/13/2023 [facility] [place] Immunizations Combined list of available immunizations from the Department of Defense and Veterans Affairs facilities. Immunization Series Date Given Administered By Site Reaction Lot Number CVX Code Drug Operations Support Coordinator Status Comments Source MENINGOCOCCAL MCV4P 1 2022 114 complet ed HISTORICA L INFORMATI ON - FROM OTHER REGISTRY, meningoco ccal polysacch aride (groups A, C, Y and W-135) diphtheri a toxoid conjugate vaccine (MCV4P) Lot#: [id number] [facility] typhoid vaccine, inactivated 2022 ROSARIOFMARTI BRUCE Shoul kaylee, left (delt oid) [id number] sanofi pasteur complet ed typhoid vaccine, inactivat ed 04/02/22 Given 0110A-A Darnall -Cavazo s anthrax vaccine 2022 ROSARIOFMARTI BRUCE Shoul kaylee, left (delt oid) [id number] [employer]. complet ed anthrax vaccine 04/02/22 Given 0110A-A Darnall -Cav[facility] s ANTHRAX, PRE-EXPOSURE PROPHYLAXIS, POST-EXPOSURE PROPHYLAXIS 2022 LEFT DELTO ID 24 complet ed HISTORICA L INFORMATI ON - FROM OTHER REGISTRY, Lot#: [id number] [facility] TYPHOID, PARENTERAL 2022 LEFT DELTO ID 41 complet ed HISTORICA L INFORMATI ON - FROM OTHER REGISTRY, typhoid vaccine, parentera l Lot#: [id number] Mfr: SANOFI PASTEUR [facility] SARS-CoV-2 (COVID-19) [id number] vacc 2020 [id number] PFIZER complet ed SARS-CoV- 2 (COVID-19 ) [id number] vacc 12/13/20 Given Ambulat ory Pharmac y COVID-19 (PFIZER), MRNA, LNP-S, PF, 30 MCG/0.3 ML DOSE 2020 208 complet ed HISTORICA L INFORMATI ON - FROM OTHER REGISTRY, SARS-CoV- 2 (COVID-19 ) [id number] 73 vacc Lot#: [id number] Mfr: [employer] INC [facility] COVID Vaccine Pfizer 2020 [id number] PFIZER complet ed COVID Vaccine Pfizer 11/22/20 Given Ambulat ory Pharmac y COVID-19 (PFIZER), MRNA, LNP-S, PF, 30 MCG/0.3 ML DOSE 1 2020 208 complet ed HISTORICA L INFORMATI ON - FROM OTHER REGISTRY, Lot#: [id number] Mfr: PFIZER, INC [facility] influenza, injectable, quadrivalent 2018 [id number] 158 Seqirus complet ed influenza , injectabl e, quadrival ent 12/27/18 Given Ambulat ory Pharmac y influenza, injectable, quadrivalent, contains preservative 1 2018 [id number] 158 Seqirus (SEQ) complet ed influenza , injectabl e, quadrival ent, contains preservat tatianna DoD typhoid Vi capsular polysaccharid e vac 2018 [id number] sanofi pasteur complet ed typhoid Vi capsular polysacch aride vac 04/01/18 Given Ambulat ory Pharmac y anthrax vaccine 2018 [id number] [employer] complet ed anthrax vaccine 04/01/18 Given Ambulat ory Pharmac y pneumococcal polysaccharid e, 23 valent 2018 [id number] Merck & Company Inc complet ed pneumococ jese polysacch aride, 23 valent 04/01/18 Given Ambulat ory Pharmac y anthrax vaccine 1 2018 [id number] [employer] [place] ([facility]) complet ed anthrax vaccine DoD pneumococcal polysaccharid e vaccine, 23 valent 1 2018 [id number] 33 Merck (MSD) complet ed pneumococ jese polysacch aride vaccine, 23 valent DoD typhoid Vi capsular polysaccharid e vaccine 1 2018 [id number] Sanofi Pasteur ([facility]) complet ed typhoid Vi capsular polysacch aride vaccine DoD ANTHRAX, PRE-EXPOSURE PROPHYLAXIS, POST-EXPOSURE PROPHYLAXIS 2018 24 complet ed HISTORICA L INFORMATI ON - FROM OTHER REGISTRY, Lot#: [id number] Mfr: EMERGENT BIOSOLUTI ONS [facility] PNEUMOCOCCAL POLYSACCHARID E [id number] 2018 33 complet ed HISTORICA L INFORMATI ON - FROM OTHER REGISTRY, pneumococ jese polysacch aride, 23 valent Lot#: [id number] [facility] TYPHOID, VICPS 1 2018 101 complet ed HISTORICA L INFORMATI ON - FROM OTHER REGISTRY, typhoid Vi capsular polysacch aride vaccine Lot#: [id number] Mfr: SANOFI PASTEUR [facility] influenza, seasonal, injectable-pf 2017 [id number] 140 Seqirus complet ed influenza , seasonal, injectabl e-pf 12/21/17 Given Ambulat ory Pharmac y Influenza, seasonal, injectable, preservative free 1 2017 [id number] Seqirus (SEQ) comple t ed Influenza [...] A, ADULT 2 2016 52 complet ed HISTORICA L INFORMATI ON - FROM OTHER REGISTRY, hepatitis A vaccine, adult dosage Lot#: [id number] [facility] influenza, seasonal, injectable-pf [id number] 140 Unknown complet ed influenza , seasonal, injectabl e-pf 11/30/16 Given Ambulat ory Pharmac y Influenza, seasonal, injectable, preservative free 1 2016 [id number] 140 Unknown (UNK) comple t ed Influenza , seasonal, injectabl e, preservat tatianna free DoD influenza, seasonal, injectable 2015 [id number] 1A 141 CSL Behring complet ed influenza , seasonal, injectabl e 10/27/15 Given Ambulat ory Pharmac y Influenza, seasonal, injectable 1 2015 [id number] 1A 141 [employer] (CSL) complet ed Influenza , seasonal, [...] ory Pharmac y adenovirus vaccine, live 2015 [id number] 4 143 Teva Pharmaceutica ls complet ed adenoviru s vaccine, live 08/14/15 Given Ambulat ory Pharmac y hepatitis A vaccine, adult dosage 1 2015 [id number] 52 Boond (SKB) complet ed hepatitis A vaccine, adult dosage DoD Adenovirus, type 4 and type 7, live, oral 1 2015 [id number] 4 143 [facility] (BRR) complet ed Adenoviru s, type 4 and type 7, live, oral DoD ADENOVIRUS TYPES 4 AND 7 1 2015 143 complet ed HISTORICA L INFORMATI ON - FROM OTHER REGISTRY, Adenoviru s, type 4 and type 7, live, oral Lot#: [id number] Mfr: SCARLETT LABORATOR IES [facility] HEP A, ADULT 1 2015 52 complet ed HISTORICA L INFORMATI ON - FROM OTHER REGISTRY, hepatitis A vaccine, adult dosage Lot#: [id number] [facility] tetanus, diphtheria, acellular pertu is 2015 [id number] 115 sanofi pasteur complet ed tetanus, diphtheri a, acellular pertussis 08/10/15 Given Ambulat ory Pharmac y poliovirus vaccine, inactivated 2015 [id number] 10 sanofi pasteur complet ed polioviru s vaccine, inactivat ed 08/10/15 Given Ambulat ory Pharmac y meningococcal A,C,Y,W-135 (MCV4P) 2015 [id number] 114 GlaxoSmithK[employer] ne complet ed meningoco ccal A,C,Y,W-1 35 (MCV4P) 08/10/15 Given Ambulat ory Pharmac y poliovirus vaccine, inactivated 1 2015 [id number] 10 Sanofi Pasteur ([facility]) complet ed polioviru s vaccine, inactivat ed DoD meningococcal polysaccharid e (groups A, C, Y and W-135) diphtheria toxoid conjugate vaccine (MCV4P) 1 [id number] [place], [place] [address] ([facility] complet ed meningoco ccal polysacch aride (groups A, C, Y and W-135) diphtheri a toxoid conjugate vaccine (MCV4P) DoD tetanus toxoid, reduced diphtheria toxoid, and acellular pertu is vaccine, adsorbed 1 2015 [id number] 115 Sanofi Pasteur ([facility]) complet ed tetanus toxoid, reduced diphtheri a toxoid, and acellular pertussis vaccine, adsorbed DoD POLIO, UNSPECIFIED FORMULATION 2015 89 complet ed HISTORICA L INFORMATI ON - FROM OTHER REGISTRY, polioviru s vaccine, inactivat ed Lot#: [id number] Mfr: SANOFI PA[facility]UR [facility] TDAP 2015 115 complet ed HISTORICA L INFORMATI ON - FROM OTHER REGISTRY, tetanus, diphtheri a, acellular pertussis Lot#: [id number] Mfr: SANOFI PASTEUR [facility] [employer] SETS [facility] influenza, seasonal, injectable-pf 2014 [id number] 140 Unknown complet ed influenza , seasonal, injectabl e-pf 01/29/15 Given Ambulat ory Pharmac y Influenza, seasonal, injectable, preservative free 1 2014 [id number] 140 Other (OTH) complet ed Influenza , [...] AM Reporting Lab: [facility] [place] [facility] [address] [address] Performing Lab: [facility] [place] [facility] [address] [address] [facility] [place] [facility] BASIC METABOLI C PANEL (non-fas ting) GLUCOSE [MASS/VOLU ME] IN SERUM OR PLASMA 98 mg/dL 65 - 100 05/11 Specimen Type: SERUM No comment entered. Ordering Provider: COSTA GALEANO Report Released Date/Time: May 12, 2023 09:36 AM Reporting Lab: [facility] [place] [facility] [address] [address] Performing Lab: [facility] [address] [address] [facility] BASIC METABOLI C PANEL (non-fas ting) SODIUM [MOLES/VOL UME] IN SERUM OR PLASMA 140 mmol/L 135 - 145 05/11 Specimen Type: SERUM No comment entered. Ordering Provider: COSTA GALEANO Report Released Date/Time: May 12, 2023 09:36 AM Reporting Lab: [facility] [place] [address] [address] Performing Lab: [facility] [place] [address] [address] [facility] BASIC METABOLI C PANEL (non-fas ting) POTASSIUM [MOLES/VOL UME] IN SERUM OR PLASMA 4.4 mmol/L 3.5 - 5.0 05/11 Specimen Type: SERUM No comment entered. Ordering Provider: COSTA GALEANO Report Released Date/Time: May 12, 2023 09:36 AM Reporting Lab: [facility] [place] [facility] [address] [address] Performing Lab: [facility] [place] [address] [address] [facility] [facility] BASIC METABOLI C PANEL (non-fas ting) CHLORIDE [MOLES/VOL UME] IN SERUM OR PLASMA 105 mmol/L 100 - 110 05/11 Specimen Type: SERUM No comment entered. Ordering Provider: COSTA GALEANO Report Released Date/Time: May 12, 2023 09:36 AM Reporting Lab: [address] [address] Performing Lab: [address] [address] [facility] BASIC METABOLI C PANEL (non-fas ting) CARBON DIOXIDE, TOTAL [MOLES/VOL UME] IN SERUM OR PLASMA 25 meq/L 20 - 30 05/11 Specimen Type: SERUM No comment entered. Ordering Provider: COSTA GALEANO Report Released Date/Time: May 12, 2023 09:36 AM Reporting Lab: [address] [address] Performing Lab: [address] [address] [facility] BASIC METABOLI C PANEL (non-fas ting) CREATININE [MASS/VOLU ME] IN SERUM OR PLASMA 0.94 mg/dL 0.50 - 1.40 05/11 Specimen Type: SERUM No comment entered. Ordering Provider: COSTA GALEANO Report Released Date/Time: May 12, 2023 09:36 AM Reporting [facility]: [facility] [address] [address] Performing Lab: [address] [address] [facility] BASIC METABOLI C PANEL (non-fas ting) GLOMERULAR FILTRATION RATE/1.73 SQ M.PREDICTE D [VOLUME RATE/AREA] IN SERUM, PLASMA OR BLOOD BY CREATININE -BASED FORMULA (CKD-EPI 2020) >90mL/mi n 60 05/11 Specimen Type: SERUM No comment entered. Ordering Provider: COSTA GALEANO Report Released Date/Time: May 12, 2023 09:36 AM Reporting Lab: [facility] [place] [facility] [address] [address] Performing Lab: [facility] [place] [facility] [address] [address] [facility] [place] [facility] CALCIUM CALCIUM [MASS/VOLU ME] IN SERUM OR PLASMA 9.2 mg/dL 8.5 - 10.2 05/11 Specimen Type: SERUM No comment entered. Ordering Provider: COSTA GALEANO Report Released Date/Time: May 12, 2023 09:36 AM Reporting Lab: [facility] [place] [facility] [address] [address] Performing Lab: [facility] [place] [address] [address] [facility] [place] [facility] CBC AND DIFF (AUTO) LEUKOCYTES [#/VOLUME] IN BLOOD BY AUTOMATED COUNT 7.67 10*3/uL 4.50 - 11.00 05/11 Specimen Type: BLOOD No comment entered. Ordering Provider: COSTA GALEANO Report Released Date/Time: May 12, 2023 09:36 AM Reporting Lab: [facility] [place] [facility] [address] [address] Performing Lab: [facility] [place] [facility] [address] [address] [facility] [place] [facility] CBC AND DIFF (AUTO) ERYTHROCYT ES [#/VOLUME] IN BLOOD BY AUTOMATED COUNT 4.48 10*6/uL 4.23 - 5.66 05/11 Specimen Type: BLOOD No comment entered. Ordering Provider: COSTA GALEANO Report Released Date/Time: May 12, 2023 09:36 AM Reporting Lab: [facility] [place] [address] [address] Performing Lab: [facility] [place] [address] [address] [facility] [facility] CBC AND DIFF (AUTO) HEMOGLOBIN [MASS/VOLU ME] IN BLOOD 14.1 g/dL 12.8 - 17 05/11 Specimen Type: BLOOD No comment entered. Ordering Provider: COSTA GALEANO Report Released Date/Time: May 12, 2023 09:36 AM Reporting Lab: [facility] [place] [facility] [address] [address] Performing Lab: [facility] [place] [facility] [address] [address] [facility] [place] [facility] CBC AND DIFF (AUTO) HEMATOCRIT [VOLUME FRACTION] OF BLOOD BY AUTOMATED COUNT 38.8 39.2 - 50.4 05/11 L Specimen Type: BLOOD No comment entered. Ordering Provider: COSTA GALEANO Report Released Date/Time: May 12, 2023 09:36 AM Reporting Lab: [facility] [place] [facility] [address] [address] Performing Lab: [facility] [place] [address] [address] [facility] [place] [facility] CBC AND DIFF (AUTO) MCV [ENTITIC VOLUME] BY AUTOMATED COUNT 86.6 fL 82 - 99 05/11 Specimen Type: BLOOD No comment entered. Ordering Provider: COSTA GALEANO Report Released Date/Time: May 12, 2023 09:36 AM Reporting Lab: [facility] [place] [facility] [address] [address] Performing Lab: [facility] [place] [facility] [address] [address] [facility] [place] [facility] CBC AND DIFF (AUTO) MCHC [MASS/VOLU ME] BY AUTOMATED COUNT 36.3 g/dL 30.8 - 35.1 05/11 H Specimen Type: BLOOD No comment entered. Ordering Provider: COSTA GALEANO Report Released Date/Time: May 12, 2023 09:36 AM Reporting Lab: [facility] [place] [address] [place] [address] Performing Lab: [facility] [place] [facility] [address] [address] [facility] [place] [facility] CBC AND DIFF (AUTO) PLATELETS [#/VOLUME] IN BLOOD BY AUTOMATED COUNT 273 10*3/uL 140 - 360 05/11 Specimen Type: BLOOD No comment entered. Ordering Provider: COSTA GALEANO Report Released Date/Time: May 12, 2023 09:36 AM Reporting Lab: [facility] [place] [facility] [address] [address] Performing Lab: [facility] [place] [address] [address] [facility] [place] [facility] CBC AND DIFF (AUTO) ERYTHROCYT E DISTRIBUTI ON WIDTH [RATIO] BY AUTOMATED COUNT 12.2 12.0 - 16.0 05/11 Specimen Type: BLOOD No comment entered. Ordering Provider: COSTA GALEANO Report Released Date/Time: May 12, 2023 09:36 AM Reporting Lab: [facility] [place] [address] [address] Performing Lab: [facility] [place] [address] [address] [facility] [place] [facility] CBC AND DIFF (AUTO) MONOCYTES [#/VOLUME] IN BLOOD BY AUTOMATED COUNT 0.70 10*3/uL 0.30 - 1.10 05/11 Specimen Type: BLOOD No comment entered. Ordering Provider: COSTA GALEANO Report Released Date/Time: May 12, 2023 09:36 AM Reporting Lab: [facility] [place] [address] [address] Performing Lab: [facility] [place] [address] [address] [facility] [place] [facility] CBC AND DIFF (AUTO) MCH [ENTITIC MASS] BY AUTOMATED COUNT 31.5 pg 26.2 - 32.6 05/11 Specimen Type: BLOOD No comment entered. Ordering Provider: COSTA GALEANO Report Released Date/Time: May 12, 2023 09:36 AM Reporting Lab: [facility] [place] [facility] [address] [address] Performing Lab: [facility] [place] [facility] [address] [address] [facility] CBC AND DIFF (AUTO) NEUTROPHIL S/100 LEUKOCYTES IN BLOOD BY AUTOMATED COUNT 59.5 43.7 - 75.8 05/11 Specimen Type: BLOOD No comment entered. Ordering Provider: COSTA GALEANO Report Released Date/Time: May 12, 2023 09:36 AM Reporting Lab: [facility] [place] [facility] [address] [address] Performing Lab: [facility] [place] [facility] [address] [address] [facility] CBC AND DIFF (AUTO) LYMPHOCYTE S/100 LEUKOCYTES IN BLOOD BY AUTOMATED COUNT 26.9 14.0 - 42.3 05/11 Specimen Type: BLOOD No comment entered. Ordering Provider: COSTA GALEANO Report Released Date/Time: May 12, 2023 09:36 AM Reporting Lab: [facility] [place] [facility] [address] [address] Performing Lab: [facility] [place] [facility] [address] [address] [facility] CBC AND DIFF (AUTO) MONOCYTES/ 100 LEUKOCYTES IN BLOOD BY AUTOMATED COUNT 9.1 5.1 - 13.7 05/11 Specimen Type: BLOOD No comment entered. Ordering Provider: COSTA GALEANO Report Released Date/Time: May 12, 2023 09:36 AM Reporting Lab: [facility] [place] [facility] [address] [address] Performing Lab: [facility] [place] [facility] [address] [address] [facility] CBC AND DIFF (AUTO) EOSINOPHIL S/100 LEUKOCYTES IN BLOOD BY AUTOMATED COUNT 3.7 0.4 - 6.8 05/11 Specimen Type: BLOOD No comment entered. Ordering Provider: COSTA GALEANO Report Released Date/Time: May 12, 2023 09:36 AM Reporting Lab: [facility] [place] [address] [address] Performing Lab: [facility] [place] [address] [address] [facility] CBC AND DIFF (AUTO) BASOPHILS/ 100 LEUKOCYTES IN BLOOD BY AUTOMATED COUNT 0.4 0.1 - 2.0 05/11 Specimen Type: BLOOD No comment entered. Ordering Provider: COSTA GALEANO Report Released Date/Time: May 12, 2023 09:36 AM Reporting Lab: [facility] [place] [address] [address] Performing Lab: [facility] [place] [address] [address] [facility] [place] [facility] CBC AND DIFF (AUTO) NEUTROPHIL S [#/VOLUME] IN BLOOD BY AUTOMATED COUNT 4.57 10*3/uL 2.20 - 7.60 05/11 Specimen Type: BLOOD No comment entered. Ordering Provider: COSTA GALEANO Report Released Date/Time: May 12, 2023 09:36 AM Reporting Lab: [facility] [place] [address] [address] Performing Lab: [facility] [place] [address] [address] [facility] [place] [facility] CBC AND DIFF (AUTO) LYMPHOCYTE S [#/VOLUME] IN BLOOD BY AUTOMATED COUNT 2.06 10*3/uL 1.00 - 3.20 05/11 Specimen Type: BLOOD No comment entered. Ordering Provider: COSTA GALEANO Report Released Date/Time: May 12, 2023 09:36 AM Reporting Lab: [facility] [place] [address] [address] Performing Lab: [facility] [place] [facility] [address] [facility] [address] [facility] [place] [facility] CBC AND DIFF (AUTO) EOSINOPHIL S [#/VOLUME] IN BLOOD BY AUTOMATED COUNT 0.28 10*3/uL 0.03 - 0.44 05/11 Specimen Type: BLOOD No comment entered. Ordering Provider: COSTA GALEANO Report Released Date/Time: May 12, 2023 09:36 AM Reporting Lab: [facility] [place] [facility] [address] [address] Performing Lab: [facility] [place] [address] [address] [facility] [facility] CBC AND DIFF (AUTO) BASOPHILS [#/VOLUME] IN BLOOD BY AUTOMATED COUNT 0.03 10*3/uL 0.01 - 0.13 05/11 Specimen Type: BLOOD No comment entered. Ordering Provider: COSTA GALEANO Report Released Date/Time: May 12, 2023 09:36 AM Reporting Lab: [facility] [place] [address] [address] Performing Lab: [facility] [place] [address] [address] [facility] CBC AND DIFF (AUTO) IMMATURE GRANULOCYT ES/100 LEUKOCYTES IN BLOOD BY AUTOMATED COUNT 0.4 0.0 - 0.7 05/11 Specimen Type: BLOOD No comment entered. Ordering Provider: COSTA GALEANO Report Released Date/Time: May 12, 2023 09:36 AM Reporting Lab: [facility] [place] [address] [address] Performing Lab: [facility] [place] [address] [address] [facility] CBC AND DIFF (AUTO) IMMATURE GRANULOCYT ES [#/VOLUME] IN BLOOD 0.03 10*3/uL 0.00 - 0.06 05/11 Specimen Type: BLOOD No comment entered. Ordering Provider: COSTA GALEANO Report Released Date/Time: May 12, 2023 09:36 AM Reporting Lab: [facility] [address] [address] Performing Lab: [facility] [address] [address] [facility] HEMOGLOB IN A1C PANEL HEMOGLOBIN A1C/HEMOGL OBIN.TOTAL [...] May 12, 2023 09:36 AM Reporting Lab: [address] [address] Performing Lab: [address] [address] [facility] LIPID PANEL, NON FASTING CHOLESTERO L [MASS/VOLU ME] IN SERUM OR PLASMA 197 mg/dL 05/11 Specimen Type: SERUM No comment entered. Ordering Provider: COSTA GALEANO Report Released Date/Time: May 12, 2023 09:36 AM Reporting Lab: [facility] [address] [address] Performing Lab: [address] [address] [facility] LIPID PANEL, NON FASTING TRIGLYCERI DE [MASS/VOLU ME] IN SERUM OR PLASMA 132 mg/dL 0 - 150 05/11 Specimen Type: SERUM No comment entered. Ordering Provider: COSTA GALEANO Report Released Date/Time: May 12, 2023 09:36 AM Reporting Lab: [facility] [place] [facility] [address] [facility] [id number] Performing Lab: [facility] [place] [facility] [address] [facility] [address] [facility] [place] [facility] LIPID PANEL, NON FASTING CHOLESTERO L IN LDL [MASS/VOLU ME] IN SERUM OR PLASMA BY LATRICE Bedoya 113 mg/dL 0 - 129 05/11 Specimen Type: SERUM No comment entered. Ordering Provider: COSTA GALEANO Report Released Date/Time: May 12, 2023 09:36 AM Reporting Lab: [facility] [place] [facility] [address] [facility] [id number] Performing Lab: [facility] [place] [facility] [place] [address] [address] [facility] [place] [facility] [place] LIPID PANEL, NON FASTING CHOLESTERO L.TOTAL/CH OLESTEROL IN HDL [MASS RATIO] IN SERUM OR PLASMA 3.4 05/11 Specimen Type: SERUM No comment entered. Ordering Provider: COSTA GALEANO Report Released Date/Time: May 12, 2023 09:36 AM Reporting Lab: [facility] [place] [facility] [place] [address] [address] Performing Lab: [facility] [place] [facility] [place] [address] [address] [facility] [place] [facility] [place] LIPID PANEL, NON FASTING CHOLESTERO L IN HDL [MASS/VOLU ME] IN SERUM OR PLASMA 58 mg/dL 40 - 60 05/11 Specimen Type: SERUM No comment entered. Ordering Provider: COSTA GALEANO Report Released Date/Time: May 12, 2023 09:36 AM Reporting Lab: [facility] [place] [facility] [place] [address] [address] Performing Lab: [facility] [place] [facility] [place] [address] [address] [facility] [place] [facility] [place] LIVER FUNCTION PROTEIN [MASS/VOLU ME] IN SERUM OR PLASMA 7.0 g/dL 6.0 - 8.3 05/11 Specimen Type: SERUM No comment entered. Ordering Provider: COSTA GALEANO Report Released Date/Time: May 12, 2023 09:36 AM Reporting Lab: [facility] [place] [facility] [place] [address] [address] Performing Lab: [facility] [place] [address] [address] [facility] LIVER FUNCTION ALBUMIN [MASS/VOLU ME] IN SERUM OR PLASMA 4.4 g/dL 3.5 - 5.0 05/11 Specimen Type: SERUM No comment entered. Ordering Provider: COSTA GALEANO Report Released Date/Time: May 12, 2023 09:36 AM Reporting Lab: [facility] [place] [address] [address] Performing Lab: [facility] [place] [address] [address] [facility] LIVER FUNCTION ALKALINE PHOSPHATAS E [ENZYMATIC ACTIVITY/V OLUME] IN SERUM OR PLASMA 52 U/L 40 - 150 05/11 Specimen Type: SERUM No comment entered. Ordering Provider: COSTA GALEANO Report Released Date/Time: May 12, 2023 09:36 AM Reporting Lab: [facility] [place] [address] [address] Performing Lab: [facility] [place] [facility] [place] [address] [address] [facility] LIVER FUNCTION ASPARTATE AMINOTRANS FERASE [ENZYMATIC ACTIVITY/V OLUME] IN SERUM OR PLASMA 22 U/L 5 - 34 05/11 Specimen Type: SERUM No comment entered. Ordering Provider: COSTA GALEANO Report Released Date/Time: May 12, 2023 09:36 AM Reporting Lab: [facility] [place] [address] [address] Performing Lab: [facility] [place] [facility] [place] [address] [address] [facility] LIVER FUNCTION ALANINE AMINOTRANS FERASE [ENZYMATIC ACTIVITY/V OLUME] IN SERUM OR PLASMA 25 U/L 05/11 Specimen Type: SERUM No comment entered. Ordering Provider: COSTA GALEANO Report Released Date/Time: May 12, 2023 09:36 AM Reporting Lab: [facility] [place] [facility] [place] [address] [address] Performing Lab: [facility] [place] [facility] [place] [address] [address] [facility] LIVER FUNCTION BILIRUBIN. TOTAL [MASS/VOLU ME] IN SERUM OR PLASMA 0.6 mg/dL 0.2 - 1.2 05/11 Specimen Type: SERUM No comment entered. Ordering Provider: COSTA GALEANO Report Released Date/Time: May 12, 2023 09:36 AM Reporting Lab: [facility] [place] [facility] [place] [address] [address] Performing Lab: [facility] [place] [address] [facility] [place] [facility] TSH THYROTROPI N [UNITS/VOL UME] IN SERUM OR PLASMA 0.84 u[IU]/mL 0.35 - 5.00 05/11 Specimen Type: SERUM No comment entered. Ordering Provider: COSTA GALEANO Report Released Date/Time: May 12, 2023 09:36 AM Reporting Lab: [facility] [address] [address] Performing Lab: [facility] [place] [address] [address] [facility] [place] [facility] Infectio us Disease HIV-1/2 AG/AB 4G CDD LC NEGATIVE 03/11 Result Comment: Performed At: [facility] [address] [place] [address] [address] [place] [address] SERGIO GILLESPIEN PHD Ph:[phone] [address] [place] [address] [facility] Infectio us Disease Source of Test.LC PostDepS torage (03/11/23 10:37 AM) 03/11 N 011[facility] Infectio us Disease Source of Test.LC Pre Deploy (04/02/22 9:28 AM) 04/02 N 0110A[facility] Infectio us Disease HIV-1/2 AG/AB 4G CDD LC NEGATIVE 04/02 Result Comment: Performed At: [facility] [address] [facility] [address] [place] [address] SERGIO ZACHARY PHD Ph:[phone] [address] [place] [address] [facility] Hematolo gy Sickle Cell Screen Negative 1 (04/02/22 9:28 AM) 04/02 N Interpretiv e Data: Expected Normal Range is Negative. This test was developed and its performance characteris tics evaluated by [facility] Reference Chemistry [facility]. ? It has not [...] to perform high complexity clinical laboratory testing. 0109A-[facility] Vital Signs Combined list of inpatient and outpatient Vital Signs from Department of Defense and Veterans Affairs, ranging from 12 months to all on record, depending upon the facility. Vital Sign Value Date Comments Source Peripheral Pulse Rate 54 bpm 03/11/2023 16:31:[address] [place] [address] [facility] Systolic Blood Pressure 114 mm[Hg] 03/11/2023 16:31:00 [facility] Diastolic Blood Pressure 83 mm[Hg] 03/11/2023 16:31:00 [facility]11[facility] Peripheral Pulse Rate 66 bpm 04/02/2022 15:20:00 011[facility] Systolic Blood Pressure 124 mm[Hg] 04/02/2022 15:20:00 [facility]110[facility] Diastolic Blood Pressure 89 mm[Hg] 04/02/2022 15:20:00 0110[facility] Encounters Combined list of: 1) Encounters [...] Source [facility] [place] [place] [facility] OUTPATIENT [id number] Notes Entered by: EMIL CADE 14 Aug 2015 0817 ------- ------- ------- ------- -- IMM TABATHA CARRASCO 08/13 Released w/o Limitations [facility]ce [facility] ) [facility] Optometry ) OUTPATIENT [id number] ASHUTOSH FERRO 08/13 Released w/o Limitations [facility](Rece [facility] Optomet ry) [facility] OUTPATIENT [id number] Notes Entered by: Magdalena TATE 14 Aug 2015 1413 ------- ------- ------- ------- -- Hearing Test ISHAAN TATE 08/13 Released w/o Limitations [facility] ) [facility] [place]([facility]) OUTPATIENT [id number] Notes Entered by: MELI RUIZ 04 Sep 2015 0930 ------- ------- ------- ------- -- MELI Perea 09/03 Released with Work/Duty Limitations [facility] [place]([facility] ) [facility] [place]) OUTPATIENT [id number] Notes Entered by: MELI RUIZ 05 Sep 2015 0941 ------- ------- ------- ------- -- MELI Perea 09/04 Released w/o Limitations [facility] [place] ) [facility] FE) OUTPATIENT [id number] Notes Entered by: MANPREET AVENDANO 17 Nov 2015 0812 ------- ------- ------- ------- -- FLU VACCINE KIKE GOOD 11/16 Released w/o Limitations [facility]) [facility] 1 FE) OUTPATIENT [id number] (C)Eder chaparro f/u-GERALD Gonzáles 11/19 Released with Work/Duty Limitations [facility] 1 FE) [place] [address]) OUTPATIENT [id number] 5 Notes Entered by: MARIANO LOCKE 01 Apr 2018 0844 ------- ------- ------- ------- -- ROOSEVELT Knowles 04/01 Released w/o Limitations [place] [place] [address] Theater Facility OUTPATIENT [id number] Theater Provider 09/10 Released w/o Limitations Theater Facilit y [place] [address]) OUTPATIENT [id number] 9 Notes Entered by: LENCHO BARKER 25 Feb 2019 1122 ------- ------- ------- ------- -- MANSI MACKAY 02/25 Released w/o Limitations [place]([facility] Bldg [address]) [place] Hearing Conservat ion) OUTPATIENT [id number] 8 Notes Entered by: CAREN BRIAN I 25 Feb 2019 1231 ------- ------- ------- ------- -- POST RIKY BRIZUELA I 02/25 Released w/o Limitations [place] Hearing Conserv ation) [place] Physical Exam Clinic) OUTPATIENT [id number] Notes Entered by: MATT DoeCARA 25 Feb 2019 1239 ------- ------- ------- ------- -- RONAK [address] 02/25 Released w/o Limitations [place] Physica l Exam Clinic) [facility] [place] [facility] Outpatient Encounter [id number] 05/07 [facility] En[facility] [id number] 05/08 [facility] [place] [facility] OFFICE O/P NEW MOD 45 MIN [id number] Diagnos is: ICD-10- CM M25.511 Pain in right shoulde patsy COSTA LEVY 05/11 [facility] En[facility] [id number] 05/14 [facility] En[facility] [id number] 05/18 [facility] [place] [facility] CASE MANAGEMENT [id number] Diagnos is: ICD-10- CM 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 SILVIANO Encarnacion 05/19 [facility] [place] Outpatient Encounter [id number] 11/10 [facility] [place] [facility] [place] Outpatient Encounter [id number] 05/03 [facility] [place] [place] Procedures Combined list of: 1) Procedures from [facility] of [facility] Affairs facilities going [facility], not all [place] non-surgical procedures are included; 2) All procedures from the Department of Defense facilities. Procedure Procedure Type Code Date Perfomer Comments Sourc e Screening Test Of Visual Acuity, Quantitative, Bilateral Screening Test Of Visual Acuity, Quantitative, Bilateral 96770 2018 ROOSEVELT ALBERT. [facility] Influenza Split Virus Vaccine Age 3+ Years Intramuscular 2015 MANPREET AVENDANO [facility] Immunization Administration One Vaccine Immunization Administration One Vaccine 71526 2015 MANPREET AVENDANO [facility] Athletic Training Re-evaluation Athletic Training Re-evaluation 55613 2015 MELI RYAN [facility] Athletic Training Evaluation Athletic Training Evaluation 40463 2015 MELI RYAN [facility] Threshold Audiogram (Pure Tone) Automated Threshold Audiogram (Pure Tone) Automated 0208T 2015 ISHAAN TATE [facility] Spectacles Services Fitting Monofocals (Not For Aphakia) Spectacles Services Fitting Monofocals (Not For Aphakia) 12024 2015 ASHUTOSH FERRO Determination Of Refractive State Determination Of Refractive State 38464 2015 ASHUTOSH FERRO Ophthalmological New Patient Start Intermediate Level Care Ophthalmological New Patient Start Intermediate Level Care 73976 2015 ASHUTOSH FERRO Tdap Vaccine Tdap Vaccine 59108 2015 TABATHA CARRASCO Visit for an IM injection of 0.5mL of Boostrix (Tetanus and Diphtheria Toxoids and Acellular Pertussis). Was given in the Right Deltoid. Patient was observed for 15 min with no adverse reactions. [facility] Meningococcal Polysacch Diphtheria Toxoid Conjugate Vaccine 2015 TABATHA CARRASCO Visit for an IM injection of 0.5mL of Meningococcal Vaccine (Menactra). Was given in the Left Deltoid. Patient was observed for 15 min with no adverse reactions. [facility] Vaccines Viral Polio, Inactivated (Salk) Vaccines Viral Polio, Inactivated (Salk) 33594 2015 TABATHA CARRASCO Visit for an IM injection of 0.5mL of IPOL (Poliovirus Vaccine Inactivated). Was given in the Right Deltoid. Patient was observed for 15 min with no adverse reactions. DoD Hepatitis A Vaccine Adult Dosage (Intramuscular Use) Hepatitis A Vaccine Adult Dosage (Intramuscular Use) 95590 2015 TABATHA CARRASCO Visit for an IM injection of 1mL of Hepatitis A (Havrix). Was given in the Right Deltoid. Patient was observed for 15 min with no adverse reactions. [facility] Immunization Admin Intranasal / Oral Each Additional Vaccine Immunization Admin Intranasal / Oral Each Additional Vaccine 42346 2015 TABATHA CARRASCO [facility] Vaccines Adenovirus Type 4 Live, For Oral Use Vaccines Adenovirus Type 4 Live, For Oral Use 71404 2015 TABATHA CARRASCO A single vaccine dose adminstered orally. [facility] Vaccines Adenovirus Type 7 Live, For Oral Use Vaccines Adenovirus Type 7 Live, For Oral Use 23124 2015 TABATHA CARRASCO A single vaccine dose adminstered orally. [facility] Immunization Administration One Vaccine Immunization Administration One Vaccine 17522 2015 TABATHA CARRASCO DoD Immunization Administration Each Additional Vaccine Immunization Administration Each Additional Vaccine 80079 2015 TABATHA CARRASCO [facility] Screening Test Of Visual Acuity, Quantitative, Bilateral Screening Test Of Visual Acuity, Quantitative, Bilateral 66517 VIKIMANSI SHARMA [facility] Threshold Audiogram (Pure Tone) Automated Threshold Audiogram (Pure Tone) Automated 0208T YOBANY GOMES Patient education, not otherwise cla ified, non-physician provider, group, per se ion YOBANY GOMES No data available for this section Ambulato ry Pharmacy Social History Combined list of available smoking, tobacco, and other social history from Department of Defense and Veterans Affairs facilities. Social History Type Response Date Comment Sourc e Tobacco smoking status NHIS [facility]ACCO FORMER USER 05/09/2023 [facility] History of tobacco use VA-TOBACCO QUIT 1 TO < 5 YRS 05/09/2023 [facility] [place] [facility] This section is an empty social history section. DoD Sexual Orientation Ambula tory Pharmacy Gender identity Ambulator y Pharmacy Sex Representation Male (finding) Un known Organization Assessment and Plan Combined list of future care activities from Department of Defense and Veterans Affairs facilities (e.g., assessment and plan notes, appointments, orders, and referrals). Additional future care activities may be listed in the Plan of Care section. Result Assessment and Plan Date Source Assessment and Plan No data available for this section 06/15/2024 Ambulatory Pharmacy Functional Status Combined list of recent functional and cognitive assessments recorded at Department of Defense and Veterans Affairs (VA).VA Functional Curry Measurement (FIM) Scale: 1 = Total Assistance (Subject = 0% +), 2 = Maximal Assistance (Subject = 25% +), 3 = Moderate Assistance (Subject = 50% +), 4 = Minimal Assistance (Subject = 75% +), 5 = Supervision, 6 = Modified Curry (Device), 7 = Complete Curry (Timely, Safely). Assessment Date/Time Source Assessment Type Assessment Skill Assessment Score Assessment Details No data available for this section
--- OUTSIDE RECORDS SUMMARY | 2024-06-15 16:52 | XMS_ITS | Continuity of Care Document ---
[facility] Organization [facility] Address [address] [place] [address] [place] [address] Assessment No assessment recorded. Plan of Treatment Reminders Order Date Submit Date Provider Last Modified By Organization Details Last Modified Time Details Appointments ANNUAL EXAM 2024 02:00P M DR LAY Not available Not available Not available ANNUAL EXAM 2025 11:30A M DR LAY Not available Not available Not available Lab testoste idalia, free + total, serum 2024 025 [facility], [address] [place] [address], [address], 06/15/2024 14:34:47 CMP, serum or plasma 2024 025 [facility], [address] [place] [address], [address], 06/15/2024 14:34:47 CBC 2024 025 [facility], [address] [place] [address], [address], 06/15/2024 14:34:47 Referral None recorded . Procedures None recorded . Surgeries None recorded . Imaging None recorded . Medication Orders None recorded . Patient TargetsNo targets recorded. Patient InstructionsNo instructions recorded. Reason for Referral None Reported. Problems Name Problem SNOMED Code Status Onset Date Resolution Date Notes Provider Name and Address Organization Details Recorded Time Dermatograp hic urticaria 2852782 Active 2024 Williams Lay, DO [address] [place], [address], [facility] 11:27:50 Fatigue 44044333 Active 2024 Williams Lay DO [address] [place], [address], [facility] 14:27:33 Problem Notes None recorded. [...] Last Updated DateTime 177.8 cm 30.7 kg/m2 69960.7 7 g 68 /min 97 % 97 % 110 mm[Hg] 64 mm[Hg] More [facility] 13:59:38 Social History Question Answer Notes LastModified by Organizat ion Details LastModified Time Tobacco Smoking Status Former Smoker Social [facility] 04/12/2024 11:04:36 What Was The Date Of Your Most Recent Tobacco Screening? 04/12/2024 [email or web address] Information not available 04/12/2024 Sex: Unknown Functional Status None recorded. Mental Status None recorded. Family History Nothing Reported. Medical History No medical history recorded. Past Encounters Encounter ID Performer Location Encounter Start Date Encounter Closed Date Diagnosis/Indication Diagnosis SNOMED-CT Code Diagnosis ICD10 Code Diagnosis Note [id number] Williams Lay DO [facility] [address] [facility] [address] [address] 06/15/2024 13:47:34 06/15/2024 16:38:31 Active or passive immunization 364536900 Z23 Dermatogra phic urticaria 0630919 L50.3 seeing benzol operator Well adult 510515082 Z00 .00 stable and doing well needs lab Fatigue 74992315 R53.83 Health Concerns Section Related Observation LastModified by Organization Detai ls LastModified Time None Recorded Concern Status LastModified by Organization Details LastModified Time None Recorded Payers Encounter Date Sequence Insurance Name Policy Number Policy Navarro Covered Member ID Navarro Member ID Guarantor Name 06/15/2024 1 EAST - DOS ON OR AFTER 24 - HUMANA () Macario Andreas Norman [id number] Macario Norman Notes Date Note Type Note [...] no diarrhea; no urinary symptoms Williams Lay, DO [address] [place], [address], [facility] 06/15/2024 14:31:03
[2024-06-15 16:55] LABS: MANUAL DIFF FLAG NO
[2024-06-15 16:59] LABS: Basophils Percent Auto 0.5 % (0-2); Eosinophils Absolute Auto 0.5 X10*3/uL (0.0-0.4); Eosinophils Percent Auto 5.1 % (0-4); Hematocrit 39.3 % (42.0-52.0); Imm Gran Abs Auto 0.02 X10*3/uL (0.00-0.03); Imm Gran Pct Auto 0.2 % (0.0-0.4); Lymphocytes Absolute Auto 2.6 X10*3/uL (1.2-4.9); Lymphocytes Percent Auto 28.7 % (20-40); Mean Corpuscular HGB Conc 35.6 g/dl (31.0-36.0); Mean Corpuscular Hemoglobin 30.4 pg (27.0-33.0); Mean Corpuscular Volume 85.4 fL (80.0-98.0); Mean Platelet Volume 10.3 fL (9.4-12.4); Monocytes Absolute Auto 0.7 X10*3/uL (0.1-1.2); Monocytes Percent Auto 7.7 % (2-11); Neutrophils Absolute Auto 5.1 x10*3/uL (2.0-8.3); Neutrophils Percent Auto 57.8 % (45-73); Platelet Count 283 X10*3/uL (160-400); Red Cell Distribution Width 12.1 % (11.0-16.0); White Blood Count 8.9 X10*3/uL (4.8-10.8)
[2024-06-15 17:13] LABS: Alanine Aminotransferase 39 U/L (0-40); Albumin Level 4.7 g/dL (3.5-5.0); Alkaline Phosphatase 57 U/L (39-117); Anion Gap 11 (12-20); Aspartate Amino Transferase 39 U/L (5-37); Bilirubin Total 0.5 mg/dL (0.0-1.0); Blood Urea Nitrogen 19 mg/dL (9-16); Calcium 9.2 mg/dL (8.4-10.2); Carbon Dioxide 25 mmol/L (22-29); Chloride 107 mmol/L (96-108); Estimated Glomerular Filt Rate > 60; Glucose Random 97 mg/dL (60-115); Potassium 4.1 mmol/L (3.3-5.1); Sodium 139 mmol/L (135-145); Total Protein 7.2 g/dL (6.5-8.0)
[2024-06-24 11:04] LABS: Testosterone, Free 70.4 pg/mL (35.0-155.0); Testosterone, Total 463 ng/dL (250-1100)
== END 2024-06-15 14:33 | disposition home or self-care (01) ==
LOC: HO.MANLDS 14:32
PROVIDERS: Visit Provider Internal Medicine
DX: R53.83 Other fatigue (principal)
CPT/HCPCS: 36415; 80053; 84402; 84403; 85025